=== PATIENT | male | born 1960 | race African-American/Black ===

== ENCOUNTER 2018-01-10 12:43 | Emergency (ER) | payer OTHER ==
[2018-01-10 12:50] VITALS: TEMP 98.3; BMI 25.5
--- NOTE | 2018-01-10 13:59 | PDOC ---
History of Present Illness - General Chief Complaint: Weakness Stated Complaint: WEAKNESS/HTN Time Seen by Provider: 01/10/18 13:05 - History of Present Illness Initial Comments: 01/10/18 14:27 The patient is a 57 year old male with a history of HTN, Heroin abuse who presents for evaluation of left ear drainage, sore throat, and generalized weakness. The patient reports a 3 day history of left ear drainage with associated sore throat and generalized weakness prompting the patient's presentation to the ED for evaluation. The patient notes that his last heroin use was 1 day ago. He otherwise denies fevers, chills, headache, difficulty swallowing, SOB, chest pain, nausea, vomiting, abdominal pain, or changes with urination or bowel movements. Past History - Past Medical History Allergies/Adverse Reactions: Allergies Allergy/AdvReac Type Severity Reaction Status Date / Time No Known Drug Allergies Allergy Verified 01/10/18 12:50 soy AdvReac Severe Vomiting Verified 01/10/18 12:50 Home Medications: Ambulatory Orders Amoxicillin - [Amoxicillin 500mg Capsule -] 100 mg PO BID #28 capsule 01/10/18 Ciprofloxacin HCl/Dexameth [Ciprodex Otic Suspension] 4 drop BID #1 bottle Anemia: No Asthma: Yes (NO TXMENT) Cancer: No Cardiac Disorders: No CVA: No COPD: No CHF: No Dementia: No Diabetes: No GI Disorders: No Disorders: No HTN: Yes (NO MEDS NOT COMPLIANT) Hypercholesterolemia: No Kidney Stones: No Seizures: No - Surgical History Abdominal Surgery: No Appendectomy: No Cardiac Surgery: No Cholecystectomy: No Lung Surgery: No Neurologic Surgery: No Orthopedic Surgery: No - Reproductive History Testicular Surgery: No - Suicide/Smoking/Psychosocial Hx Smoking Status: Yes Smoking History: Current every day smoker Have you smoked in the past 12 months: Yes Number of Cigarettes Smoked Daily: 10 Cigars Per Day: 0 Information on smoking cessation initiated: Yes 'Breaking Loose' booklet given: 01/10/18 Hx Alcohol Use: No Drug/Substance Use Hx: Yes (heroine) Substance Use Type: Heroin Hx Substance Use Treatment: Yes ([facility]) Review of Systems - Review of Systems Comments:: 01/10/18 14:31 Constitutional: No fevers, chills, fatigue, malaise HEENT: Left ear drainage, Sore Throat. No Rhinorrhea, nasal congestion, visual changes Cardiovascular: No chest pain, syncope, palpitations, lightheadedness Respiratory: No Cough, SOB, Hemoptysis, Gastrointestinal: No Abdominal pain, Nausea, Vomiting, Constipation, Diarrhea, Melena Genitourinary: No Dysuria, Frequency, Urgency, Hesitancy, Hematuria, Flank pain Musculoskeletal: No Myalgia, arthralgia Skin: No rashes, itching, bruising, pallor Neurologic: No Headache, Dizziness, Numbness, Weakness, or Tingling Psychiatric: No Hallucinations. No SI or HI *Physical Exam - Vital Signs Last Vital Signs Temp Pulse Resp BP Pulse Ox 98.3 F 65 18 144/95 98 01/10/18 12:47 01/10/18 12:47 01/10/18 12:47 01/10/18 12:47 01/10/18 12:47 - Physical Exam Comments: 01/10/18 14:31 General Appearance: Nourished. No Apparent Distress HEENT: EOMI, [place]. Pharyngeal Erythema. Erythematous Left TM with an Erythematous ear canal. No Tonsillar Exudate, Tonsillar Erythema Neck: No Cervical Lymphadenopathy Respiratory/Chest: Lungs Clear, Normal Breath Sounds. No Crackles, Rales, Rhonchi, Wheezing Cardiovascular: Regular Rhythm, Regular Rate. No Murmur, Gallops, Rubs Gastrointestinal/Abdominal: Normal Bowel Sounds, Soft. No Guarding, Rebound, Tenderness Musculoskeletal: No CVA Tenderness Extremity: Normal Capillary Refill Integumentary: Normal Color, Dry, Warm Neurologic: Fully Oriented, Alert, Normal Mood/Affect, Normal Response, ED Treatment Course - LABORATORY CBC & Chemistry Diagram: 01/10/18 14:34 01/10/18 14:34 Medical Decision Making - Medical Decision Making 01/10/18 14:32 The patient is a 57 year old male with a history of HTN, Heroin abuse who presents for evaluation of left ear drainage, sore throat, and generalized weakness. Differential includes but is not limited to: Otitis Externa, Otitis Media, Strep pharyngitis, Viral pharyngitis. Given the patient's physical exam , it appears the patient's symptoms are due to an Otitis Media. However we will obtain a cbc, cmp, and rapid strep to evaluate further. We will continue to monitor and reassess in the meantime. 01/10/18 16:58 CBC, cmp, rapid strep are unremarkable. We are comfortable discharging the patient home at this time with primary care provider follow up on amoxicillin and ciprodex ear drops. We discussed the results, plan, and return precautions with the patient who voiced understanding and is agreeable with the plan. *DC/Admit/Observation/Transfer Diagnosis at time of Disposition: Otitis media Qualifiers: Otitis media type: unspecified Chronicity: acute Qualified Code(s): H66.90 - Otitis media, unspecified, unspecified ear Otitis externa Qualifiers: Otitis externa type: unspecified type Chronicity: acute Laterality: unspecified laterality Qualified Code(s): H60.509 - Unspecified acute noninfective otitis externa, unspecified ear - Discharge Dispostion Disposition: HOME Condition at time of disposition: Good Admit: No - Prescriptions Prescriptions: Amoxicillin - [Amoxicillin 500mg Capsule -] 100 mg PO BID #28 capsule Ciprofloxacin HCl/Dexameth [Ciprodex Otic Suspension] 4 drop BID #1 bottle - Referrals Referrals: Chuy Waller MD [Primary Care Provider] - - Patient Instructions Printed Discharge Instructions: Middle Ear Infection, DI for Otitis Externa Additional Instructions: Please return to the ER if you experience concerning or worsening symptoms including worsening pain, difficulty swallowing, difficulty breathing or fevers. Your symptoms are likely due to an ear infection. We have sent a prescription for antibiotics to your pharmacy as well as ear drops that you should use as directed to help treat your symptoms. It is EXTREMELY important that you call to schedule a follow up appointment with a primary care provider to discuss your ER visit and further management of your symptoms. - Post Discharge Activity
--- NOTE | 2018-01-10 14:04 | PDOC ---
Attending Attestation - Resident Resident Name: MairaEdwinDouglas - ED Attending Attestation I have performed the following: I have examined & evaluated the patient, The case was reviewed & discussed with the resident, I agree w/resident's findings & plan, Exceptions are as noted - HPI HPI: 01/10/18 14:01 57y M hx of heroin abuse, htn, presents with complaint of L ear dranage, sore throat/generalized weakness x 3 days. No fever/chills, difficulty swallowing. on exam pt has an erythemadous TM, mild erythema in external ear canal no mastoid tenderness suspect otitis media w externa will tx with abx will ck basic labs but if neg, will have pt fu with PMD - Medical Decision Making 01/10/18 15:57 labs unremarkble no leukocytosis will treat pt for otitis externa and media with PO and topical abx will have pt fu with ENT for fu
[2018-01-10 14:51] LABS: EOS % 2.2 % (0-4.5); HEMATOCRIT 38.7 % (35.4-49); HEMOGLOBIN 12.8 GM/dL (11.7-16.9); LYMPH % 36.8 % (8-40); MCH 28.4 pg (25.7-33.7); MCHC 33.2 g/dl (32.0-35.9); MEAN CELL VOLUME 85.6 fl (80-96); MEAN PLT VOLUME 8.4 fl (7.5-11.1); MONO % 7.1 % (3.8-10.2); NEUT % 52.9 % (42.8-82.8); PLATELET COUNT 198 K/MM3 (134-434); RBC 4.52 M/mm3 (4.00-5.60); RDW 14.2 % (11.9-15.9); WHITE BLOOD COUNT 6.8 K/mm3 (4.0-10.0)
[2018-01-10 15:14] LABS: ALBUMIN 3.4 g/dl (3.4-5.0); ANION GAP 6 (8-16); BLOOD UREA NITROGEN 15 mg/dL (7-18); CALCIUM 8.9 mg/dL (8.5-10.1); CHLORIDE 104 mmol/L (98-107); CO2 30 mmol/L (21-32); CREATININE 1.1 mg/dL (0.7-1.3); GLUCOSE,RANDOM 119 mg/dL (74-106); SGOT/AST 16 U/L (15-37); SGPT/ALT 14 U/L (12-78); SODIUM 140 mmol/L (136-145)
[2018-01-10 15:16] LABS: ALK PHOS 102 U/L (45-117); BILIRUBIN,TOTAL 0.5 mg/dL (0.2-1.0); TOT PROT 6.8 g/dl (6.4-8.2)
[2018-01-10 16:14] VITALS: BP 145/88; PULSE 61
== END 2018-01-10 16:14 | disposition home or self-care (01) ==
LOC: JER 12:43
DX: H66.92 Otitis media, unspecified, left ear (principal); H60.502 Unspecified acute noninfective otitis externa, left ear; I10 Essential (primary) hypertension; F11.10 Opioid abuse, uncomplicated; F17.210 Nicotine dependence, cigarettes, uncomplicated; Z91.14 Patient's other noncompliance with medication regimen
CPT/HCPCS: 36415; 80053; 85025; 87070; 87430; 99282-25

== ENCOUNTER 2018-08-23 20:57 | Inpatient (IN) | payer OTHER ==
[2018-08-23 21:14] VITALS: BMI 24.5
[2018-08-23] MEDS ORDERED: MELATONIN 5 MG TABLETS PO PRN (22:00)
--- NOTE | 2018-08-23 22:13 | HP ---
"COWS - Scale Resting Pulse: 1= [place] 81-100 Sweatin=Flushed/Facial Moisture Restless Observation: 0= Sits Still Pupil Size: 1= Pupils >than Normal Bone or Joint Aches: 1= Mild Discomfort Runny Nose/ Eye Tearin= Runny Nose/Eyes GI Upset > 30mins: 0= None Tremor Observation: 2= Slight Tremor Visible Yawning Observation: 0= None Anxiety or Irritability: 1=Feels Anxious/Irritable Goose Flesh Skin: 0=Smooth Skin COWS Score: 10 CIWA Score Nausea/Vomitin-No Nausea/No Vomiting Muscle Tremors: 3 (Slight tremor visible) Anxiety: 3 Agitation: 3 Paroxysmal Sweats: 3 (Facial moisture w/o beads) Orientation: 0-Oriented Tacttile Disturbances: 0-None Auditory Disturbances: 0-None Visual Disturbances: 0-None Headache: 2-Mild CIWA-Ar Total Score: 14 - Admission Criteria [facility] Guidelines: Admission for Medically Managed Detox: Requires at least one of the followin. CIWA greater than 12 2. Seizures within the past 24 hours 3. Delirium tremens within the past 24 hours 4. Hallucinations within the past 24 hours 5. Acute intervention needed for co occurring medical disorder 6. Acute intervention needed for co occurring psychiatric disorder 7. Severe withdrawal that cannot be handled at a lower level of care (continued vomiting, continued diarrhea, abnormal vital signs) requiring intravenous medication and/or fluids 8. Patient presents the following: CIWA greater than 12 Admission Criteria Met: Admission criteria met Admission ROS [facility] - [facility] Chief Complaint: Here for alcohol and heroin withdrawal. Allergies/Adverse Reactions: Allergies Allergy/AdvReac Type Severity Reaction Status Date / Time No Known Drug Allergies Allergy Verified 08/23/18 21:18 soy AdvReac Severe Vomiting Verified 08/23/18 21:18 History of Present Illness: Here for detox. Nicotine use since age 13. Alcohol use since age 15. Heroin use since age 21. Cocaine/crack use since age 34. Denies seizures, blackouts, verdoses. States longest period of sobriety is 8 months. Hx asthma - denies recent exacerbation. States coughs a lot when detoxing. HTN - last took medication 2 months ago. Hx depression. Denies thoughts of harming self or others. Search Terms: Nash Gonsales, 1960 Search Date: 08/23/2018 10:07:43 PM The Drug Utilization Report below displays all of the controlled substance prescriptions, if any, that your patient has filled in the last twelve months. The information displayed on this report is compiled from pharmacy submissions to the Department, and accurately reflects the information as submitted by the pharmacies. This report was requested by: Melissa Mahoney | Reference #: [id number] Others' Prescriptions Patient Name: Nash Gonsales Date: 1960 Address: [address] [place] [address] Sex: Male Rx Written Rx Dispensed Drug Quantity Days Supply Prescriber Name 03/21/2018 03/21/2018 chlordiazepoxide 25 mg capsule 26 5 Michael James MD Exam Limitations: No Limitations - Ebola screening Have you traveled outside of the country in the last 21 days: No Have you had contact with anyone from an Ebola affected area: No Have you been sick,other than usual withdrawal symptoms: No Do you have a fever: No - Review of Systems Constitutional: Changes in sleep (Difficulty falling and staying asleep - no meds) EENT: reports: Blurred Vision, Dental Problems (Upper and lower dentures. Chews and swallows ok) Respiratory: reports: No Symptoms reported Cardiac: reports: No Symptoms Reported GI: reports: No Symptoms Reported : reports: No Symptoms Reported Musculoskeletal: reports: Joint Pain ((L) shoulder), Muscle Pain (Genralized) Integumentary: reports: No Symptoms Reported Neuro: reports: Headache, Tremors Endocrine: reports: No Symptoms Reported Hematology: reports: No Symptoms Reported Psychiatric: reports: Judgement Intact, Orientated x3, Agitated, Anxious, Depressed (Denies thoughts of harming self or others) Patient History - Patient Medical History Hx Anemia: No Hx Asthma: Yes (NO TXMENT) Hx Chronic Obstructive Pulmonary Disease (COPD): No Hx Cancer: No Hx Cardiac Disorders: No Hx Congestive Heart Failure: No Hx Hypertension: Yes (NO MEDS NOT COMPLIANT) Hx Hypercholesterolemia: No Hx Pacemaker: No HX Cerebrovascular Accident: No Hx Seizures: No Hx Dementia: No Hx Diabetes: No Hx Gastrointestinal Disorders: No Hx Genitourinary Disorders: No Hx Sexually Transmitted Disorders: No Hx Renal Disease (ESRD): No Hx Human Immunodeficiency Virus (HIV): No Hx Hepatitis C: No Hx Depression: Yes Hx Suicide Attempt: No Hx Bipolar Disorder: No Hx Schizophrenia: No - Patient Surgical History Past Surgical History: No Hx Neurologic Surgery: No Hx Cataract Extraction: No Hx Cardiac Surgery: No Hx Lung Surgery: No Hx Breast Surgery: No Hx Breast Biopsy: No Hx Abdominal Surgery: No Hx Appendectomy: No Hx Cholecystectomy: No Hx Genitourinary Surgery: No Hx Section: No Hx Orthopedic Surgery: No Anesthesia Reaction: No - PPD History Previous Implant?: Yes Documented Results: Negative w/proof Implanted On Prior [facility] Admission?: Yes Date: 10/12/15 Results: 0mm PPD to be Administered?: Yes - Smoking Cessation Smoking history: Current every day smoker Have you smoked in the past 12 months: Yes Aproximately how many cigarettes per day: 4 Cigars Per Day: 0 Hx Chewing Tobacco Use: No Initiated information on smoking cessation: Yes 'Breaking Loose' booklet given: 08/23/18 - Substance & Tx. History Hx Alcohol Use: Yes Hx Substance Use: Yes Substance Use Type: Alcohol, Cocaine, Heroin Hx Substance Use Treatment: Yes (detox, rehab, out-patient) - Substances Abused Alcohol Route: Oral Amount used: LIQUOR- 1 PINT, BEER- 2(40oz) Age of first use: 15 Date of Last Use: 08/23/18 Heroin Route: Inhalation Frequency: Daily Amount used: 8 bags Age of first use: 21 Date of Last Use: 08/23/18 Crack Route: Smoking Frequency: Daily Amount used: 5 bags Age of first use: 34 Date of Last Use: 08/23/18 Family Disease History - Family Disease History Family Disease History: Diabetes: Father (), Mother () Admission Physical Exam S - Vital Signs Vital Signs: Vital Signs - 24 hr 08/23/18 21:13 Temperature 98.4 F Pulse Rate 88 Respiratory 18 Rate Blood Pressure 150/78 - Physical General Appearance: Yes: Appropriately Dressed, Mild Distress, Tremorous, Irritable, Sweating, Anxious HEENTM: Yes: EOMI, Hearing grossly Normal, Normocephalic, [place] (Pupils = 4 mm), Rhinorrhea, Other (Perforated Nasal Septum) Respiratory: Yes: Lungs Clear, Normal Breath Sounds, No Respiratory Distress Neck: Yes: No masses,lesions,Nodules, Supple Breast: Yes: Breast Exam Deferred Cardiology: Yes: Regular Rhythm, Regular Rate, S1, S2, Murmur Abdominal: Yes: Non Tender, Flat, Soft, Increased Bowel Sounds Genitourinary: Yes: Within Normal Limits Back: Yes: Normal Inspection Musculoskeletal: Yes: full range of Motion, Gait Steady Extremities: Yes: Normal Capillary Refill, Normal Range of Motion, Tremors ( MIld tremors of hands when arms extended) Neurological: Yes: market research intern II-XII NML intact, Fully Oriented, Alert, Motor Strength 5/5, Normal Mood/Affect Integumentary: Yes: Normal Color, Dry (Decreased skin tirgor), Warm Lymphatic: Yes: Within Normal Limits - Diagnostic (1) Nontraumatic perforated nasal septum Current Visit: Yes Status: Acute (2) Alcohol dependence with uncomplicated withdrawal Current Visit: No Status: Acute (3) Cocaine dependence Current Visit: Yes Status: Chronic Qualifiers: Substance use status: uncomplicated Qualified Code(s): F14.20 - Cocaine dependence, uncomplicated (4) Opioid dependence with withdrawal Current Visit: Yes Status: Acute (5) HTN (hypertension) Current Visit: Yes Status: Chronic Qualifiers: Hypertension type: essential hypertension Qualified Code(s): I10 - Essential (primary) hypertension (6) Nicotine dependence Current Visit: Yes Status: Chronic Qualifiers: Nicotine product type: cigarettes Substance use status: uncomplicated Qualified Code(s): F17.210 - Nicotine dependence, cigarettes, uncomplicated (7) Murmur, cardiac Current Visit: Yes Status: Suspected (8) Dehydration Current Visit: Yes Status: Acute (9) Asthma Current Visit: No Status: Chronic Qualifiers: Asthma severity: unspecified severity Asthma persistence: intermittent Asthma complication type: uncomplicated Qualified Code(s): J45.20 - Mild intermittent asthma, uncomplicated Cleared for Admission [facility] - Detox or Rehab [facility] Level of Care: Medically Managed Detox Regimen/Protocol: Methadone/Librium [facility] Breath Alcohol Content Breath Alcohol Content: 0 Urine Drug Screen - Results Drug Screen Negative: No Urine Drug Screen Results: DEBBIE-Cocaine, OPI-Opiates, OXY-Oxycodone"
[2018-08-23] MEDS ORDERED: MAG HYDROX/AL HYDROX/SIMETH 30 ML UNIT-DOSE CUP PO PRN (22:44)
[2018-08-23] MEDS ORDERED: chlordiazePOXIDE HCL 25 MG CAPSULE PO PRN (22:44)
[2018-08-23] MEDS ORDERED: MAGNESIUM CITRATE 300 ML BOTTLE PO PRN (22:44)
[2018-08-23] MEDS ORDERED: NICOTINE POLACRILEX 2 MG GUM BC PRN (22:44)
[2018-08-23] MEDS ORDERED: METHADONE HCL 10 MG TABLET (FOR DETOX USE ONLY) PO ONE ×2 (22:44→23:00)
[2018-08-23] MEDS ORDERED: MAGNESIUM HYDROX 2400MG/30ML ORAL SUSPENSION 30 ML CUP PO PRN (22:44)
[2018-08-23] MEDS ORDERED: MENTHOL/PHENOL 1 EACH UD MM PRN (22:44)
[2018-08-23] MEDS ORDERED: ACETAMINOPHEN 325 MG TABLET (FP) PO PRN (22:44)
[2018-08-23] MEDS ORDERED: LOPERAMIDE HCL 2 MG CAPSULE PO PRN (22:44)
[2018-08-23] MEDS ORDERED: NAPROXEN 500 MG TABLET (FP) PO PRN (22:48)
[2018-08-23] MEDS ORDERED: ALBUTEROL SO4 0.083% IH SOL 2.5 MG/3 ML VIAL.NEB. NEB PRN (22:50)
[2018-08-23] MEDS ORDERED: AMMONIUM LACTATE 12% LOTION 225 GM BOTTLE TP PRN (23:03)
[2018-08-23] MEDS: chlordiazePOXIDE HCL 25 MG CAPSULE PO SCH (23:43)
[2018-08-24 02:34] LABS: URINE APPEARANCE CLEAR; URINE BILIRUBIN NEGATIVE (<2.0 mg/dL); URINE COLOR YELLOW; URINE GLUCOSE (UA) NEGATIVE (NEGATIVE); URINE KETONE NEGATIVE (NEGATIVE); URINE LEUK ESTERASE NEGATIVE (NEGATIVE); URINE NITRITE NEGATIVE (NEGATIVE); URINE PROTEIN NEGATIVE (NEGATIVE); URINE UROBILINOGEN NEGATIVE mg/dL (0.2-1.0)
[2018-08-24] MEDS: chlordiazePOXIDE HCL 25 MG CAPSULE PO SCH ×4 (05:45→22:41)
[2018-08-24] MEDS ORDERED: METHADONE HCL 10 MG TABLET (FOR DETOX USE ONLY) PO SCH (10:00)
[2018-08-24] MEDS: NICOTINE 7 MG/24 HOURS TOPICAL PATCH TD SCH (10:45)
[2018-08-24] MEDS: PRENATAL VITAMINS W/ FOLIC ACID TABLET (FP) PO SCH (10:45)
[2018-08-24 10:57] LABS: HEMATOCRIT 38.4 % (35.4-49); HEMOGLOBIN 12.3 GM/dL (11.7-16.9); MCH 27.9 pg (25.7-33.7); MCHC 32.1 g/dl (32.0-35.9); MEAN CELL VOLUME 86.8 fl (80-96); MEAN PLT VOLUME 9.3 fl (7.5-11.1); PLATELET COUNT 170 K/MM3 (134-434); RBC 4.43 M/mm3 (4.00-5.60); RDW 14.2 % (11.9-15.9)
[2018-08-24 11:04] LABS: ALBUMIN 3.2 g/dl (3.4-5.0); ALK PHOS 109 U/L (45-117); ANION GAP 5 MMOL/L (8-16); BILIRUBIN,TOTAL 0.5 mg/dL (0.2-1); BLOOD UREA NITROGEN 16 mg/dL (7-18); CALCIUM 8.3 mg/dL (8.5-10.1); CHLORIDE 102 mmol/L (98-107); CO2 30 mmol/L (21-32); CREATININE 0.8 mg/dL (0.55-1.3); GLUCOSE,RANDOM 100 mg/dL (74-106); POTASSIUM 4.3 mmol/L (3.5-5.1); SGOT/AST 17 U/L (15-37); SGPT/ALT 15 U/L (13-61); SODIUM 138 mmol/L (136-145); TOT PROT 5.9 g/dl (6.4-8.2)
--- NOTE | 2018-08-24 11:50 | PN ---
[facility] CIWA - CIWA Score Nausea/Vomitin-Mild Nausea/No Vomiting Muscle Tremors: 4-Moderate,w/Arms Extend Anxiety: 1-Mildly Anxious Agitation: 0-Normal Activity Paroxysmal Sweats: 1-Minimal Palms Moist Orientation: 0-Oriented Tacttile Disturbances: 0-None Auditory Disturbances: 0-None Visual Disturbances: 0-None Headache: 0-None Present CIWA-Ar Total Score: 7 [facility] COWS - Scale Resting Pulse: 1= [place] 81-100 Sweatin=Flushed/Facial Moisture Restless Observation: 0= Sits Still Pupil Size: 0= Normal to Room Light Bone or Joint Aches: 1= Mild Discomfort Runny Nose/ Eye Tearin= None GI Upset > 30mins: 2= Nausea/Diarrhea (No diarrhea) Tremor Observation of Outstretched Hands: 2= Slight Tremor Visible Yawning Observation: 0= None Anxiety or Irritability: 1=Feels Anxious/Irritable Goose Flesh Skin: 0=Smooth Skin COWS Score: 9 [facility] Progress Note (SOAP) Subjective: C/o nausea, Denies vomiting or diarrhea. States aches in back and legs. States has shakes. Objective: A&O x 3. Abd soft/non-tender. BS+ Lungs CTA; (+) tremors w/ arms extended. Facial moisture. Vital Signs 08/24/18 08/24/18 06:00 10:35 Temperature 97.7 F 97.9 F Pulse Rate 61 97 H Respiratory 18 18 Rate Blood Pressure 134/74 100/60 Laboratory Last Values WBC 4.0 K/mm3 (4.0-10.0) 08/24/18 07:50 RBC 4.43 M/mm3 (4.00-5.60) 08/24/18 07:50 Hgb 12.3 GM/dL (11.7-16.9) 08/24/18 07:50 Hct 38.4 % (35.4-49) 08/24/18 07:50 MCV 86.8 fl (80-96) 08/24/18 07:50 MCH 27.9 pg (25.7-33.7) 08/24/18 07:50 MCHC 32.1 g/dl (32.0-35.9) 08/24/18 07:50 RDW 14.2 % (11.9-15.9) 08/24/18 07:50 Plt Count 170 K/MM3 (134-434) 08/24/18 07:50 MPV 9.3 fl (7.5-11.1) D 08/24/18 07:50 Sodium 138 mmol/L (136-145) 08/24/18 07:50 Potassium 4.3 mmol/L (3.5-5.1) 08/24/18 07:50 Chloride 102 mmol/L (98-107) 08/24/18 07:50 Carbon Dioxide 30 mmol/L (21-32) 08/24/18 07:50 Anion Gap 5 MMOL/L (8-16) L 08/24/18 07:50 BUN 16 mg/dL (7-18) 08/24/18 07:50 Creatinine 0.8 mg/dL (0.55-1.3) 08/24/18 07:50 Creat Clearance w eGFR > 60 (>60) 08/24/18 07:50 Random Glucose 100 mg/dL (74-106) 08/24/18 07:50 Calcium 8.3 mg/dL (8.5-10.1) L 08/24/18 07:50 Total Bilirubin 0.5 mg/dL (0.2-1) 08/24/18 07:50 AST 17 U/L (15-37) 08/24/18 07:50 ALT 15 U/L (13-61) 08/24/18 07:50 Alkaline Phosphatase 109 U/L (45-117) 08/24/18 07:50 Total Protein 5.9 g/dl (6.4-8.2) L 08/24/18 07:50 Albumin 3.2 g/dl (3.4-5.0) L 08/24/18 07:50 Urine Color Yellow 08/23/18 23:32 Urine Appearance Clear 08/23/18 23:32 Urine pH 7.0 (5.0-8.0) D 08/23/18 23:32 Ur Specific [place] 1.017 (1.010-1.035) 08/23/18 23:32 Urine Protein Negative (NEGATIVE) 08/23/18 23:32 Urine Glucose (UA) Negative (NEGATIVE) 08/23/18 23:32 Urine Ketones Negative (NEGATIVE) 08/23/18 23:32 Urine Blood Negative (NEGATIVE) 08/23/18 23:32 Urine Nitrite Negative (NEGATIVE) 08/23/18 23:32 Urine Bilirubin Negative (<2.0 mg/dL) 08/23/18 23:32 Urine Urobilinogen Negative mg/dL (0.2-1.0) 08/23/18 23:32 Ur Leukocyte Esterase Negative (NEGATIVE) 08/23/18 23:32 HIV 1&2 Antibody Screen Negative 08/24/18 07:50 HIV P24 Antigen Negative 08/24/18 07:50 Labs reviewed. 08/24/18 11:54 Assessment: Withdrawal symptoms. Plan: Continue detox. Encourage water intake.
[2018-08-24] MEDS: THIAMINE HCL 100 MG TABLET (FP) PO SCH (22:42)
[2018-08-25] MEDS: chlordiazePOXIDE HCL 25 MG CAPSULE PO SCH ×3 (05:19→17:45)
[2018-08-25] MEDS: PRENATAL VITAMINS W/ FOLIC ACID TABLET (FP) PO SCH (10:26)
[2018-08-25] MEDS: METHADONE HCL 5 MG TABLET (FOR DETOX USE ONLY) PO SCH (10:27)
[2018-08-25] MEDS: NICOTINE 7 MG/24 HOURS TOPICAL PATCH TD SCH (10:30)
--- NOTE | 2018-08-25 13:37 | PN ---
[facility] CIWA - CIWA Score Nausea/Vomitin-No Nausea/No Vomiting Muscle Tremors: 2 Anxiety: 1-Mildly Anxious Agitation: 1-Slight > Activity Paroxysmal Sweats: 1-Minimal Palms Moist Orientation: 0-Oriented Tacttile Disturbances: 0-None Auditory Disturbances: 0-None Visual Disturbances: 0-None Headache: 1-Very Mild CIWA-Ar Total Score: 6 [facility] COWS - Scale Resting Pulse: 0= [place] 80 or Below Sweatin= No chills or Flushing Restless Observation: 0= Sits Still Pupil Size: 0= Normal to Room Light Bone or Joint Aches: 1= Mild Discomfort Runny Nose/ Eye Tearin= Nasal Congestion GI Upset > 30mins: 1= Stomach Cramp Tremor Observation of Outstretched Hands: 1= Tremor [place], Not Seen Yawning Observation: 2= >3x During Session Anxiety or Irritability: 1=Feels Anxious/Irritable Goose Flesh Skin: 0=Smooth Skin COWS Score: 7 [facility] Progress Note (SOAP) Subjective: sweat tremor restlessness muscle aches Objective: 08/25/18 13:45 Vital Signs Temperature 97.7 F 08/25/18 10:00 Pulse Rate 74 08/25/18 10:00 Respiratory Rate 18 08/25/18 10:00 Blood Pressure 140/81 08/25/18 10:00 O2 Sat by Pulse Oximetry (%) Laboratory Last Values WBC 4.0 K/mm3 (4.0-10.0) 08/24/18 07:50 RBC 4.43 M/mm3 (4.00-5.60) 08/24/18 07:50 Hgb 12.3 GM/dL (11.7-16.9) 08/24/18 07:50 Hct 38.4 % (35.4-49) 08/24/18 07:50 MCV 86.8 fl (80-96) 08/24/18 07:50 MCH 27.9 pg (25.7-33.7) 08/24/18 07:50 MCHC 32.1 g/dl (32.0-35.9) 08/24/18 07:50 RDW 14.2 % (11.9-15.9) 08/24/18 07:50 Plt Count 170 K/MM3 (134-434) 08/24/18 07:50 MPV 9.3 fl (7.5-11.1) D 08/24/18 07:50 Sodium 138 mmol/L (136-145) 08/24/18 07:50 Potassium 4.3 mmol/L (3.5-5.1) 08/24/18 07:50 Chloride 102 mmol/L (98-107) 08/24/18 07:50 Carbon Dioxide 30 mmol/L (21-32) 08/24/18 07:50 Anion Gap 5 MMOL/L (8-16) L 08/24/18 07:50 BUN 16 mg/dL (7-18) 08/24/18 07:50 Creatinine 0.8 mg/dL (0.55-1.3) 08/24/18 07:50 Creat Clearance w eGFR > 60 (>60) 08/24/18 07:50 Random Glucose 100 mg/dL (74-106) 08/24/18 07:50 Calcium 8.3 mg/dL (8.5-10.1) L 08/24/18 07:50 Total Bilirubin 0.5 mg/dL (0.2-1) 08/24/18 07:50 AST 17 U/L (15-37) 08/24/18 07:50 ALT 15 U/L (13-61) 08/24/18 07:50 Alkaline Phosphatase 109 U/L (45-117) 08/24/18 07:50 Total Protein 5.9 g/dl (6.4-8.2) L 08/24/18 07:50 Albumin 3.2 g/dl (3.4-5.0) L 08/24/18 07:50 Urine Color Yellow 08/23/18 23:32 Urine Appearance Clear 08/23/18 23:32 Urine pH 7.0 (5.0-8.0) D 08/23/18 23:32 Ur Specific [place] 1.017 (1.010-1.035) 08/23/18 23:32 Urine Protein Negative (NEGATIVE) 08/23/18 23:32 Urine Glucose (UA) Negative (NEGATIVE) 08/23/18 23:32 Urine Ketones Negative (NEGATIVE) 08/23/18 23:32 Urine Blood Negative (NEGATIVE) 08/23/18 23:32 Urine Nitrite Negative (NEGATIVE) 08/23/18 23:32 Urine Bilirubin Negative (<2.0 mg/dL) 08/23/18 23:32 Urine Urobilinogen Negative mg/dL (0.2-1.0) 08/23/18 23:32 Ur Leukocyte Esterase Negative (NEGATIVE) 08/23/18 23:32 RPR Titer Nonreactive (NONREACTIVE) 08/24/18 07:50 HIV 1&2 Antibody Screen Negative 08/24/18 07:50 HIV P24 Antigen Negative 08/24/18 07:50 lab noted Assessment: 08/25/18 13:46 withdrawal sx Plan: continue detox
[2018-08-25] MEDS: chlordiazePOXIDE 5 MG CAPSULE PO SCH (22:49)
[2018-08-25] MEDS: THIAMINE HCL 100 MG TABLET (FP) PO SCH (22:50)
[2018-08-26] MEDS: chlordiazePOXIDE 5 MG CAPSULE PO SCH ×3 (06:16→17:38)
[2018-08-26] MEDS: PRENATAL VITAMINS W/ FOLIC ACID TABLET (FP) PO SCH (10:30)
[2018-08-26] MEDS: NICOTINE 7 MG/24 HOURS TOPICAL PATCH TD SCH (10:30)
[2018-08-26] MEDS: METHADONE HCL 5 MG TABLET (FOR DETOX USE ONLY) PO SCH (10:31)
--- NOTE | 2018-08-26 11:27 | EKG ---
Test Reason : Blood Pressure : / mmHG Vent. Rate : 066 BPM Atrial Rate : 066 BPM P-R Int : 190 ms QRS Dur : 084 ms QT Int : 412 ms P-R-T Axes : 075 042 033 degrees QTc Int : 431 ms NORMAL SINUS RHYTHM NONSPECIFIC T WAVE ABNORMALITY ABNORMAL ECG WHEN COMPARED WITH ECG OF 18-SEP-2016 12:25, T WAVE VARIATION Confirmed by SAMI RESENDEZ MD ([id number]) on 08/26/2018 11:27:24 AM Referred By: Confirmed By:SAMI RESENDEZ MD
--- NOTE | 2018-08-26 11:45 | PN ---
[facility] Progress Note (SOAP) Subjective: body aches tremor sweat trouble sleep at night restlessness gi distress Objective: 08/26/18 11:44 Vital Signs Temperature 97.7 F 08/26/18 09:05 Pulse Rate 66 08/26/18 09:05 Respiratory Rate 18 12 09:05 Blood Pressure 130/82 08/26/18 09:05 O2 Sat by Pulse Oximetry (%) Laboratory Last Values WBC 4.0 K/mm3 (4.0-10.0) 08/24/18 07:50 RBC 4.43 M/mm3 (4.00-5.60) 08/24/18 07:50 Hgb 12.3 GM/dL (11.7-16.9) 08/24/18 07:50 Hct 38.4 % (35.4-49) 08/24/18 07:50 MCV 86.8 fl (80-96) 08/24/18 07:50 MCH 27.9 pg (25.7-33.7) 08/24/18 07:50 MCHC 32.1 g/dl (32.0-35.9) 08/24/18 07:50 RDW 14.2 % (11.9-15.9) 08/24/18 07:50 Plt Count 170 K/MM3 (134-434) 08/24/18 07:50 MPV 9.3 fl (7.5-11.1) D 08/24/18 07:50 Sodium 138 mmol/L (136-145) 08/24/18 07:50 Potassium 4.3 mmol/L (3.5-5.1) 08/24/18 07:50 Chloride 102 mmol/L (98-107) 08/24/18 07:50 Carbon Dioxide 30 mmol/L (21-32) 08/24/18 07:50 Anion Gap 5 MMOL/L (8-16) L 08/24/18 07:50 BUN 16 mg/dL (7-18) 08/24/18 07:50 Creatinine 0.8 mg/dL (0.55-1.3) 08/24/18 07:50 Creat Clearance w eGFR > 60 (>60) 08/24/18 07:50 Random Glucose 100 mg/dL (74-106) 08/24/18 07:50 Calcium 8.3 mg/dL (8.5-10.1) L 08/24/18 07:50 Total Bilirubin 0.5 mg/dL (0.2-1) 08/24/18 07:50 AST 17 U/L (15-37) 08/24/18 07:50 ALT 15 U/L (13-61) 08/24/18 07:50 Alkaline Phosphatase 109 U/L (45-117) 08/24/18 07:50 Total Protein 5.9 g/dl (6.4-8.2) L 08/24/18 07:50 Albumin 3.2 g/dl (3.4-5.0) L 08/24/18 07:50 Urine Color Yellow 08/23/18 23:32 Urine Appearance Clear 08/23/18 23:32 Urine pH 7.0 (5.0-8.0) D 08/23/18 23:32 Ur Specific [place] 1.017 (1.010-1.035) 08/23/18 23:32 Urine Protein Negative (NEGATIVE) 08/23/18 23:32 Urine Glucose (UA) Negative (NEGATIVE) 08/23/18 23:32 Urine Ketones Negative (NEGATIVE) 08/23/18 23:32 Urine Blood Negative (NEGATIVE) 08/23/18 23:32 Urine Nitrite Negative (NEGATIVE) 08/23/18 23:32 Urine Bilirubin Negative (<2.0 mg/dL) 08/23/18 23:32 Urine Urobilinogen Negative mg/dL (0.2-1.0) 08/23/18 23:32 Ur Leukocyte Esterase Negative (NEGATIVE) 08/23/18 23:32 RPR Titer Nonreactive (NONREACTIVE) 08/24/18 07:50 HIV 1&2 Antibody Screen Negative 08/24/18 07:50 HIV P24 Antigen Negative 08/24/18 07:50 lab noted Assessment: 08/26/18 11:45 withdrawal sx Plan: continue detox
[2018-08-26] MEDS: THIAMINE HCL 100 MG TABLET (FP) PO SCH (23:19)
[2018-08-26] MEDS: chlordiazePOXIDE HCL 10 MG CAPSULE PO SCH (23:19)
[2018-08-27] MEDS: chlordiazePOXIDE HCL 10 MG CAPSULE PO SCH (05:19)
[2018-08-27 09:10] VITALS: BP 142/73; PULSE 80; TEMP 98.2
[2018-08-27] MEDS ORDERED: METHADONE HCL 10 MG TABLET (FOR DETOX USE ONLY) PO SCH (10:00)
--- NOTE | 2018-08-27 10:30 | DS ---
[facility] Detox Discharge Summary Admission Date: 08/23/18 Discharge Date: 08/27/18 - History Present History: Alcohol Dependence, Opioid Dependence Additional Comments: 57 years old male admitted on 08/23/18 for alcohol and opiate withdrawal sx completed detox regimen tolerated well alert oriented x 3 no acute distress aftercare [facility] appointment was made on 09/05/18 - Physical Exam Results Vital Signs: Vital Signs Temperature 98.2 F 08/27/18 09:09 Pulse Rate 80 08/27/18 09:09 Respiratory Rate 18 08/27/18 09:09 Blood Pressure 142/73 08/27/18 09:09 O2 Sat by Pulse Oximetry (%) Pertinent Admission Physical Exam Findings: alcohol and opiate withdrawal sx Vital Signs Temperature 98.2 F 08/27/18 09:09 Pulse Rate 80 08/27/18 09:09 Respiratory Rate 18 08/27/18 09:09 Blood Pressure 142/73 08/27/18 09:09 O2 Sat by Pulse Oximetry (%) Laboratory Last Values WBC 4.0 K/mm3 (4.0-10.0) 08/24/18 07:50 RBC 4.43 M/mm3 (4.00-5.60) 08/24/18 07:50 Hgb 12.3 GM/dL (11.7-16.9) 08/24/18 07:50 Hct 38.4 % (35.4-49) 08/24/18 07:50 MCV 86.8 fl (80-96) 08/24/18 07:50 MCH 27.9 pg (25.7-33.7) 08/24/18 07:50 MCHC 32.1 g/dl (32.0-35.9) 08/24/18 07:50 RDW 14.2 % (11.9-15.9) 08/24/18 07:50 Plt Count 170 K/MM3 (134-434) 08/24/18 07:50 MPV 9.3 fl (7.5-11.1) D 08/24/18 07:50 Sodium 138 mmol/L (136-145) 08/24/18 07:50 Potassium 4.3 mmol/L (3.5-5.1) 08/24/18 07:50 Chloride 102 mmol/L (98-107) 08/24/18 07:50 Carbon Dioxide 30 mmol/L (21-32) 08/24/18 07:50 Anion Gap 5 MMOL/L (8-16) L 08/24/18 07:50 BUN 16 mg/dL (7-18) 08/24/18 07:50 Creatinine 0.8 mg/dL (0.55-1.3) 08/24/18 07:50 Creat Clearance w eGFR > 60 (>60) 08/24/18 07:50 Random Glucose 100 mg/dL (74-106) 08/24/18 07:50 Calcium 8.3 mg/dL (8.5-10.1) L 08/24/18 07:50 Total Bilirubin 0.5 mg/dL (0.2-1) 08/24/18 07:50 AST 17 U/L (15-37) 08/24/18 07:50 ALT 15 U/L (13-61) 08/24/18 07:50 Alkaline Phosphatase 109 U/L (45-117) 08/24/18 07:50 Total Protein 5.9 g/dl (6.4-8.2) L 08/24/18 07:50 Albumin 3.2 g/dl (3.4-5.0) L 08/24/18 07:50 Urine Color Yellow 08/23/18 23:32 Urine Appearance Clear 08/23/18 23:32 Urine pH 7.0 (5.0-8.0) D 08/23/18 23:32 Ur Specific [place] 1.017 (1.010-1.035) 08/23/18 23:32 Urine Protein Negative (NEGATIVE) 08/23/18 23:32 Urine Glucose (UA) Negative (NEGATIVE) 08/23/18 23:32 Urine Ketones Negative (NEGATIVE) 08/23/18 23:32 Urine Blood Negative (NEGATIVE) 08/23/18 23:32 Urine Nitrite Negative (NEGATIVE) 08/23/18 23:32 Urine Bilirubin Negative (<2.0 mg/dL) 08/23/18 23:32 Urine Urobilinogen Negative mg/dL (0.2-1.0) 08/23/18 23:32 Ur Leukocyte Esterase Negative (NEGATIVE) 08/23/18 23:32 RPR Titer Nonreactive (NONREACTIVE) 08/24/18 07:50 HIV 1&2 Antibody Screen Negative 08/24/18 07:50 HIV P24 Antigen Negative 08/24/18 07:50 lab noted - Treatment Hospital Course: Detox Protocol Followed, Detoxed Safely, Responded well, Discharged Condition Good, Rehab Referral Accepted Patient has Accepted a Rehab Referral to: [facility] - Medication Discharge Medications: Ambulatory Orders NK [No Known Home Medication] 08/23/18 - Diagnosis (1) Alcohol dependence with uncomplicated withdrawal Current Visit: Yes Status: Acute (2) Opioid dependence with withdrawal Current Visit: Yes Status: Acute (3) HTN (hypertension) Current Visit: Yes Status: Chronic Qualifiers: Hypertension type: essential hypertension Qualified Code(s): I10 - Essential (primary) hypertension (4) Nicotine dependence Current Visit: Yes Status: Acute Qualifiers: Nicotine product type: cigarettes Substance use status: in withdrawal Qualified Code(s): F17.213 - Nicotine dependence, cigarettes, with withdrawal (5) Asthma Current Visit: Yes Status: Chronic Qualifiers: Asthma severity: unspecified severity Asthma persistence: intermittent Asthma complication type: uncomplicated Qualified Code(s): J45.20 - Mild intermittent asthma, uncomplicated (6) Substance induced mood disorder Current Visit: Yes Status: Suspected - AMA Did Patient Leave Against Medical Advice: No
[2018-08-28] MEDS ORDERED: METHADONE HCL 5 MG TABLET (FOR DETOX USE ONLY) PO SCH (06:00)
== END 2018-08-27 09:47 | disposition home or self-care (01) | DRG 773 ==
LOC: YASAS 20:57 → Y6N 23:02
PROC: HZ2ZZZZ Detoxification Services for Substance Abuse Treatment (ICD-10-PCS; principal; 2018-08-23)
DX: F11.23 Opioid dependence with withdrawal (principal); F10.230 Alcohol dependence with withdrawal, uncomplicated; F17.213 Nicotine dependence, cigarettes, with withdrawal; F19.24 Other psychoactive substance dependence with psychoactive substance-induced mood disorder; F32.9 Major depressive disorder, single episode, unspecified; E86.0 Dehydration; I10 Essential (primary) hypertension; J45.20 Mild intermittent asthma, uncomplicated; J34.89 Other specified disorders of nose and nasal sinuses; R01.1 Cardiac murmur, unspecified
CPT/HCPCS: 36415; 80053; 81003; 85027; 86593; 87389; 93005; 93010

== ENCOUNTER 2018-09-14 12:57 | Inpatient (IN) | payer OTHER ==
[2018-09-14] MEDS ORDERED: ALBUTEROL SO4 2.5/IPRATROPIUM 0.5 INH SOL 3 ML VIAL.NEB. NEB ONE ×2 (13:23→13:24)
--- NOTE | 2018-09-14 13:23 | PDOC ---
History of Present Illness - General Chief Complaint: Respiratory Stated Complaint: CHEST PAIN/SOB Time Seen by Provider: 09/14/18 13:18 - History of Present Illness Initial Comments: 09/14/18 13:42 The patient is a 57 year old male with a history of HTN, Asthma, Alcohol abuse, Heroin Abuse who presents for evaluation of cough, body aches, and shortness of breath. The patient reports a 2 day history of worsening shortness of breath with an associated non-productive cough, body aches, and subjective fevers prompting his presentation to the ED for further evaluation. He notes that he did snort heroin earlier this morning. He reports that he is a daily smoker as well, but has not been able to smoke due to not feeling well. He otherwise denies chills, chest pain, nausea, vomiting, abdominal pain, or changes with urination or bowel movements. Past History - Past Medical History Allergies/Adverse Reactions: Allergies Allergy/AdvReac Type Severity Reaction Status Date / Time No Known Drug Allergies Allergy Verified 09/14/18 13:04 soy AdvReac Severe Vomiting Verified 09/14/18 13:04 Home Medications: Ambulatory Orders NK [No Known Home Medication] 08/23/18 Anemia: No Asthma: Yes (NO TXMENT) Cancer: No Cardiac Disorders: No CVA: No COPD: No CHF: No Dementia: No Diabetes: No GI Disorders: No Disorders: No HTN: Yes (NO MEDS NOT COMPLIANT) Hypercholesterolemia: No Kidney Stones: No Seizures: No - Surgical History Abdominal Surgery: No Appendectomy: No Cardiac Surgery: No Cholecystectomy: No Lung Surgery: No Neurologic Surgery: No Orthopedic Surgery: No - Reproductive History Testicular Surgery: No - Suicide/Smoking/Psychosocial Hx Smoking Status: Yes Smoking History: Current every day smoker Have you smoked in the past 12 months: Yes Number of Cigarettes Smoked Daily: 3 Cigars Per Day: 0 Information on smoking cessation initiated: No 'Breaking Loose' booklet given: 08/23/18 Hx Alcohol Use: Yes Drug/Substance Use Hx: Yes Substance Use Type: Alcohol, Cocaine, Heroin Hx Substance Use Treatment: Yes (detox, rehab, out-patient) Review of Systems - Review of Systems Comments:: 09/14/18 13:44 Constitutional: Subjective fevers, Fatigue, Body Aches. No chills, HEENT: No Rhinorrhea, nasal congestion, visual changes Cardiovascular: No chest pain, syncope, palpitations, lightheadedness Respiratory: Cough, SOB. No Hemoptysis, Gastrointestinal: No Abdominal pain, Nausea, Vomiting, Constipation, Diarrhea, Melena Genitourinary: No Dysuria, Frequency, Urgency, Hesitancy, Hematuria, Flank pain Musculoskeletal: No Myalgia, arthralgia Skin: No rashes, itching, bruising, pallor Neurologic: No Headache, Dizziness, Numbness, Weakness, or Tingling Psychiatric: No Hallucinations. No SI or HI *Physical Exam - Vital Signs Last Vital Signs Temp Pulse Resp BP Pulse Ox 98.6 F 72 18 159/91 90 L 09/14/18 13:01 09/14/18 13:01 09/14/18 13:01 09/14/18 13:01 09/14/18 13:01 - Physical Exam Comments: 09/14/18 13:45 General Appearance: Nourished. No Apparent Distress HEENT: No Pharyngeal Erythema, Tonsillar Exudate, Tonsillar Erythema Neck: No Cervical Lymphadenopathy Respiratory/Chest: Diffuse expiratory wheezing noted bilaterally. No Crackles , Rales, Rhonchi Cardiovascular: Regular Rhythm, Regular Rate. No Murmur, Gallops, Rubs Gastrointestinal/Abdominal: Normal Bowel Sounds, Soft. No Guarding, Rebound, Tenderness Musculoskeletal: No CVA Tenderness Extremity: Normal Capillary Refill Integumentary: Normal Color, Dry, Warm Neurologic: Fully Oriented, Alert, Normal Mood/Affect, Normal Response, Moderate Sedation - Procedure Monitoring Vital Signs: Procedure Monitoring Vital Signs Temperature 98.6 F 09/14/18 13:01 Pulse Rate 72 09/14/18 13:01 Respiratory Rate 18 09/14/18 13:01 Blood Pressure 159/91 09/14/18 13:01 O2 Sat by Pulse Oximetry (%) 90 L 09/14/18 13:01 Heart Score/ECG Review #1 ECG reviewed & interpreted by me at: 13:46 General ECG Interpretation: Sinus Rhythm, Normal Rate, Normal Intervals, No acute ischemic changes ED Treatment Course - LABORATORY CBC & Chemistry Diagram: 09/14/18 13:28 09/14/18 13:28 Medical Decision Making - Medical Decision Making 09/14/18 13:46 The patient is a 57 year old male with a history of HTN, Asthma, Alcohol abuse, Heroin Abuse who presents for evaluation of cough, body aches, and shortness of breath. Differential includes but is not limited to: Asthma exacerbation, COPD exacerbation, Pneumonia, Influenza, Infectious, Metabolic Derangement. It is likely the patient's symptoms are due to a COPD or asthma exacerbation. The patient was noted to be saturating 88% on room air on exam here in the ED. Given the patient's history and physical exam, we will obtain a cbc, cmp, troponin, bnp, ekg, chest plain film to evaluate further. We will treat with duonebs solumedrol. We will continue to monitor and reassess while here in the ED. 09/14/18 15:38 CBC, cmp, troponin, bnp are unremarkable. Chest plain film does not demonstrate any acute process as read by our radiologist. The patient continues to have expiratory wheezing on exam although somewhat improved despite medications. We believe he requires admission given his persistent symptoms and initial hypoxia. The patient is currently saturating 98% on 2L NC. We discussed the case with the hospitalist team who accepted the patient for admission. *DC/Admit/Observation/Transfer Diagnosis at time of Disposition: COPD exacerbation - Discharge Dispostion Condition at time of disposition: Stable Decision to Admit order: Yes - Referrals - Patient Instructions - Post Discharge Activity
[2018-09-14 13:48] LABS: HEMATOCRIT 39.1 % (35.4-49); HEMOGLOBIN 13.5 GM/dL (11.7-16.9); MCH 29.5 pg (25.7-33.7); MCHC 34.6 g/dl (32.0-35.9); MEAN CELL VOLUME 85.2 fl (80-96); PLATELET COUNT 152 K/MM3 (134-434); RBC 4.58 M/mm3 (4.00-5.60); WHITE BLOOD COUNT 4.4 K/mm3 (4.0-10.0)
[2018-09-14] MEDS ORDERED: methylPREDNISolone NA SUCC 125 MG/2 ML VIAL IVPUSH ONE (13:48)
[2018-09-14 13:49] LABS: BASO % 0.6 % (0-2.0); EOS % 0.2 % (0-4.5); LYMPH % 18.8 % (8-40); MEAN PLT VOLUME 9.3 fl (7.5-11.1); MONO % 12.6 % (3.8-10.2); NEUT % 67.8 % (42.8-82.8)
[2018-09-14] MEDS ORDERED: methylPREDNISolone NA SUCC 125 MG/2 ML VIAL ONE (13:55)
--- NOTE | 2018-09-14 14:27 | PDOC ---
Attending Attestation - Resident Resident Name: Douglas Rao - ED Attending Attestation I have performed the following: I have examined & evaluated the patient, The case was reviewed & discussed with the resident, I agree w/resident's findings & plan, Exceptions are as noted - HPI HPI: 09/14/18 14:27 The patient is a 57 year old male, with a significant past medical history of HTN, Asthma, Alcohol abuse, and Heroin Abuse, who presents to the emergency department with, 2 days of shortness of breath, cough, subjective fevers, and body aches. Patient endorses snorting heroin prior to his arrival but, denies taking anything for his symptoms. States symptoms feel like his asthma. He denies any recent fevers, chills, headache or dizziness. He denies any recent nausea, vomit, diarrhea or constipation. He denies any recent chest pain or shortness of breath. He denies any recent dysuria, frequency, urgency or hematuria. Allergies: Soy. Past surgical history: None reported. Social History: Smoker. Heroine usage. - Physicial Exam PE: 09/14/18 14:27 agree with resident exam - Medical Decision Making 09/14/18 14:00 57yo M hx asthma, PSA presents to the ED with 2 days of fevers, wheezing, SOB. Vitals with O2 sat 90%. Exam with diffuse wheezing consistent with asthma exacerbation. Unlikely PE as no RF, no CP, EKG non ischemic. In light of SOB, hx HTN, will send trop/BNP. Plan for labs, XR, nebs, steroids, reassess. 09/14/18 15:42 Pt continues to be SOB, but feels mildly better Wheezing less, but still mild exp wheezing on R Labs wnl, still has 2L O2 requirement Will obs for asthma/COPD exacerbation Pt accepted for admission, signed out by Dr. Rao Case discussed in detail with admitting physician including history, physical exam and ancillary studies. Admitting physician has assumed care for the patient, will follow all pending diagnostics and will complete the evaluation and treatment. Heart Score/ECG Review #1 09/14/18 14:47 Twelve-lead EKG was performed and reviewed by me. Normal sinus rhythm, rate 70 to. Normal axis and intervals. No ST elevations. High voltage consistent with LVH.
[2018-09-14 14:43] LABS: ALBUMIN 3.7 g/dl (3.4-5.0); ALK PHOS 111 U/L (45-117); ANION GAP 6 MMOL/L (8-16); BILIRUBIN,TOTAL 0.6 mg/dL (0.2-1); BLOOD UREA NITROGEN 12 mg/dL (7-18); CALCIUM 8.9 mg/dL (8.5-10.1); CHLORIDE 100 mmol/L (98-107); CO2 30 mmol/L (21-32); CREATININE 1.2 mg/dL (0.55-1.3); GLUCOSE,RANDOM 104 mg/dL (74-106); POTASSIUM 3.8 mmol/L (3.5-5.1); SGOT/AST 33 U/L (15-37); SGPT/ALT 22 U/L (13-61); SODIUM 136 mmol/L (136-145); TOT PROT 7.2 g/dl (6.4-8.2)
--- NOTE | 2018-09-14 15:39 | EKG ---
Test Reason : Blood Pressure : / mmHG Vent. Rate : 072 BPM Atrial Rate : 072 BPM P-R Int : 174 ms QRS Dur : 088 ms QT Int : 414 ms P-R-T Axes : 081 039 037 degrees QTc Int : 453 ms NORMAL SINUS RHYTHM MINIMAL VOLTAGE CRITERIA FOR LVH, MAY BE NORMAL VARIANT BORDERLINE ECG WHEN COMPARED WITH ECG OF 23-AUG-2018 23:19, NO SIGNIFICANT CHANGE WAS FOUND Confirmed by JESSICA FARFAN MD ([id number]) on 09/14/2018 3:38:47 PM Referred By: Confirmed By:JESSICA FARFAN MD
[2018-09-14 17:51] VITALS: BMI 24.1
[2018-09-14] MEDS ORDERED: ALBUTEROL SO4 2.5/IPRATROPIUM 0.5 INH SOL 3 ML VIAL.NEB. NEB PRN (18:17)
[2018-09-14] MEDS ORDERED: AZITHROMYCIN IVPB 500 MG in DEXTROSE 5%-WATER - 250 ML IVPB SCH (18:30)
--- NOTE | 2018-09-14 18:47 | HP ---
CHIEF COMPLAINT: Shortness of Breath PCP: None HISTORY OF PRESENT ILLNESS: 57 year old Male with history of HTN, Asthma/COPD, Polysubstance Abuse (Heroin, Cocaine, Alcohol), presents with a 2 day history of SOB, cough productive of brown sputum, body aches, chills with SpO2 of 88% on Room Air as per ED physician. No fever. No hemoptysis. No chest pain/palpitations. He admits to daily alcohol use and heroin use (which he snorts), last time this am. He denies history of alcohol withdrawal. He does not follow with a PCP and takes no home medications. ER course was notable for: (1)Duoneb admin, IV Methylpred, supplemental O2 (2) SpO2 88% on Room Air PAST MEDICAL HISTORY: HTN - not compliant with meds Asthma/COPD Polysubstance Abuse (Heroin, Cocaine, Alcohol) Social History: Lives alone. Smokes 4cpd, Heroin use, last time this am. Cocaine use, last time 2 days ago. Family History: Reviewed and non-contributory Allergies No Known Drug Allergies Allergy (Verified 09/14/18 13:04) soy Adverse Reaction (Severe, Verified 09/14/18 13:04) Vomiting HOME MEDICATIONS: Home Medications Medication Instructions Recorded NK [No Known Home Medication] 08/23/18 REVIEW OF SYSTEMS CONSTITUTIONAL: Absent: fever,diaphoresis. Complains of generalized weakness, malaise, chills. HEENT: Absent: rhinorrhea, nasal congestion, throat pain, throat swelling, difficulty swallowing, mouth swelling, ear pain, eye pain, visual changes CARDIOVASCULAR: Absent: chest pain, syncope, palpitations, irregular heart rate, lightheadedness , peripheral edema RESPIRATORY: Admits to cough productive of brown sputum and shortness of breath. No stridor, hemoptysis GASTROINTESTINAL: Absent: abdominal pain, abdominal distension, nausea, vomiting, diarrhea, constipation, melena, hematochezia GENITOURINARY: Absent: dysuria, frequency, urgency, hesitancy, hematuria MUSCULOSKELETAL: Absent: myalgia, arthralgia, joint swelling, back pain, neck pain SKIN: Absent: rash, itching, pallor ENDOCRINE: Absent: polyuria/polydipsia NEUROLOGIC: Absent: headache, focal weakness or paresthesias, dizziness, unsteady gait, seizure, mental status changes, bladder or bowel incontinence PSYCHIATRIC: Absent: anxiety, depression, suicidal or homicidal ideation, hallucinations. PHYSICAL EXAMINATION Vital Signs - 24 hr 09/14/18 09/14/18 09/14/18 13:01 14:03 15:18 Temperature 98.6 F 98.7 F Pulse Rate 72 Pulse Rate [ 85 Left Radial] Respiratory 18 18 Rate Blood Pressure 159/91 Blood Pressure 131/73 [Left Arm] O2 Sat by Pulse 90 L 98 Oximetry (%) 09/14/18 09/14/18 17:40 18:00 Temperature 99.0 F Pulse Rate 86 Pulse Rate [ Left Radial] Respiratory 19 Rate Blood Pressure 128/70 Blood Pressure [Left Arm] O2 Sat by Pulse 96 Oximetry (%) GENERAL: Drowsy but rousable to Orientation x3. HEAD: Normal with no signs of trauma. EYES: Pupils small but equal, round and reactive to light, extraocular movements intact, sclera anicteric, conjunctiva clear. EARS, NOSE, THROAT: No pharyngeal erythema/exudate NECK: Normal range of motion, supple without lymphadenopathy, JVD. LUNGS: Bilateral wheeze. HEART: Regular rate and rhythm, normal S1 and S2 ABDOMEN: Soft, nontender, not distended, normoactive bowel sounds, no guarding, no rebound, no masses. MUSCULOSKELETAL: Normal range of motion at all joints. No bony deformities or tenderness. No CVA tenderness. UPPER EXTREMITIES: 2+ pulses, warm, well-perfused. No cyanosis. No clubbing. No peripheral edema. LOWER EXTREMITIES: 2+ pulses, warm, well-perfused. No calf tenderness. No peripheral edema. NEUROLOGICAL: Cranial nerves II-XII intact. Normal speech. Tone/Power normal all 4 extremities. Laboratory Results - last 24 hr 09/14/18 09/14/18 09/14/18 13:20 13:28 13:28 WBC 4.4 RBC 4.58 Hgb 13.5 Hct 39.1 MCV 85.2 MCH 29.5 MCHC 34.6 RDW 15.0 Plt Count 152 MPV 9.3 Absolute Neuts (auto) 3.0 Neutrophils % 67.8 D Lymphocytes % 18.8 D Monocytes % 12.6 H Eosinophils % 0.2 D Basophils % 0.6 Nucleated RBC % 0 Sodium 136 Potassium 3.8 Chloride 100 Carbon Dioxide 30 Anion Gap 6 L BUN 12 Creatinine 1.2 Creat Clearance w eGFR > 60 Random Glucose 104 Calcium 8.9 Total Bilirubin 0.6 AST 33 ALT 22 Alkaline Phosphatase 111 Creatine Kinase 593 H Creatine Kinase Index 0.7 CK-MB (CK-2) 4.6 H Troponin I < 0.02 B-Natriuretic Peptide Total Protein 7.2 Albumin 3.7 Influenza A (Rapid) Negative Influenza B (Rapid) Negative 09/14/18 13:30 WBC RBC Hgb Hct MCV MCH MCHC RDW Plt Count MPV Absolute Neuts (auto) Neutrophils % Lymphocytes % Monocytes % Eosinophils % Basophils % Nucleated RBC % Sodium Potassium Chloride Carbon Dioxide Anion Gap BUN Creatinine Creat Clearance w eGFR Random Glucose Calcium Total Bilirubin AST ALT Alkaline Phosphatase Creatine Kinase Creatine Kinase Index CK-MB (CK-2) Troponin I B-Natriuretic Peptide 360.1 H Total Protein Albumin Influenza A (Rapid) Influenza B (Rapid) ECG - no acute St/T wave changes CXR - no acute cardiopulmonary findings. ASSESSMENT/PLAN: 57 year old Male with history of HTN, Asthma/COPD, Polysubstance Abuse (Heroin, Cocaine, Alcohol), presents with a 2 day history of SOB, cough productive of brown sputum, body aches, chills with SpO2 of 88% on Room Air as per ED physician. No fever. No hemoptysis. No chest pain/palpitations. He admits to daily alcohol use and heroin use (which he snorts), last time this am. He denies history of alcohol withdrawal. 1. Acute Hypoxic Respiratory Failure secondary to Asthma/COPD Exacerbation SpO2 reported as 88% on RA in ED No formal history of COPD but long time smoker. CXR - no acute cardiopulmonary findings. Flu negative Afebrile, Hemodynamically Stable, without leukocytosis. Will treat with Supplemental O2, DuoNebs, IV Methylpred, Azithromycin Monitor respiratory status. 2. History of Polysubstance Abuse including Alcohol, Cocaine, and Heroin just this morning. Mild drowsiness, rousable to orientation x 3. No signs of respiratory distress or depression. Pupils small but equal and reactive. Given history of heroin use this am, will monitor neuro and respiratory status overnight. No signs of alcohol withdrawal. If develops, will start Librium detox protocol. MVI, Thiamine, Folate. 3. History of HTN - not on medication - will monitor. GI Px - Protonix DVT Px - Heparin Visit type - Emergency Visit Emergency Visit: Yes ED Registration Date: 09/14/18 Care time: The patient presented to the Emergency Department on the above date and was hospitalized for further evaluation of their emergent condition. - New Patient This patient is new to me today: Yes Date on this admission: 09/14/18 - Critical Care Critical Care patient: No
[2018-09-14] MEDS: SODIUM CHLORIDE 1,000 ML IV SCH (18:54)
[2018-09-14] MEDS: methylPREDNISolone NA SUCC 40 MG/1 ML VIAL IVPB SCH (18:55)
[2018-09-14] MEDS: PANTOPRAZOLE 40 MG TABLET (FP) PO SCH (18:59)
[2018-09-14] MEDS: AZITHROMYCIN IVPB 500 MG/250 ML D5W PRE-DOCKED IVPB SCH (19:00)
[2018-09-14] MEDS ORDERED: FOLIC ACID INJECTION - 1 MG, THIAMINE HCL 100 MG, MULTIVIT INJECTION ADULT 10 ML in SOD... IVPB ONE (19:45)
[2018-09-14] MEDS: ALBUTEROL SO4 2.5/IPRATROPIUM 0.5 INH SOL 3 ML VIAL.NEB. NEB SCH (20:00)
[2018-09-14] MEDS: HEPARIN NA (PORCINE) 5,000 UNITS/ML 1ML VIAL SQ SCH (22:43)
[2018-09-15] MEDS: methylPREDNISolone NA SUCC 40 MG/1 ML VIAL IVPB SCH ×3 (01:42→17:39)
[2018-09-15] MEDS: HEPARIN NA (PORCINE) 5,000 UNITS/ML 1ML VIAL SQ SCH ×3 (05:40→21:33)
[2018-09-15 07:56] LABS: ALBUMIN 3.2 g/dl (3.4-5.0); ALK PHOS 92 U/L (45-117); ANION GAP 7 MMOL/L (8-16); BILIRUBIN,TOTAL 0.5 mg/dL (0.2-1); BLOOD UREA NITROGEN 17 mg/dL (7-18); CALCIUM 8.5 mg/dL (8.5-10.1); CHLORIDE 109 mmol/L (98-107); CO2 26 mmol/L (21-32); CREATININE 1.1 mg/dL (0.55-1.3); GLUCOSE,RANDOM 137 mg/dL (74-106); MAGNESIUM 1.9 mg/dL (1.8-2.4); POTASSIUM 4.1 mmol/L (3.5-5.1); SGOT/AST 26 U/L (15-37); SGPT/ALT 18 U/L (13-61); SODIUM 142 mmol/L (136-145); TOT PROT 6.5 g/dl (6.4-8.2)
[2018-09-15] MEDS: ALBUTEROL SO4 2.5/IPRATROPIUM 0.5 INH SOL 3 ML VIAL.NEB. NEB SCH ×4 (09:00→19:39)
[2018-09-15] MEDS: FOLIC ACID 1 MG TABLET (FP) PO SCH (09:53)
[2018-09-15] MEDS: PANTOPRAZOLE 40 MG TABLET (FP) PO SCH (09:53)
[2018-09-15] MEDS: THIAMINE HCL 100 MG TABLET (FP) PO SCH (09:53)
[2018-09-15] MEDS: MULTIVITAMINS (DAILY MVI) TABLET (FP) PO SCH (09:53)
[2018-09-15] MEDS: AZITHROMYCIN IVPB 500 MG/250 ML D5W PRE-DOCKED IVPB SCH ×2 (10:30→14:45)
--- NOTE | 2018-09-15 15:16 | PN ---
Progress Note (short form) - Note Progress Note: Still some dyspnea and cough. No chest pain/palpitations/hemoptysis. Mildly improved from presentation. Afebrile, Hemodynamically Stable. Last Vital Signs Temp Pulse Resp BP Pulse Ox 98.1 F 80 18 124/77 96 09/15/18 14:40 09/15/18 14:40 09/15/18 14:40 09/15/18 14:40 09/14/18 21:00 HEENT - Atraumatic, Normocephalic Heart - S1, S2, RRR Lungs - bilateral wheeze Abdomen - soft, non-tender. Bowel Sounds normal. Extrmities - no edema. Laboratory Results - last 24 hr 09/14/18 09/15/18 09/15/18 13:28 06:30 06:30 Sodium 142 Potassium 4.1 Chloride 109 H Carbon Dioxide 26 Anion Gap 7 L BUN 17 Creatinine 1.1 Creat Clearance w eGFR > 60 Random Glucose 137 H Calcium 8.5 Magnesium 1.9 Total Bilirubin 0.5 AST 26 ALT 18 Alkaline Phosphatase 92 Creatine Kinase 324 H Creatine Kinase Index 0.7 1.0 CK-MB (CK-2) 4.6 H 3.4 Total Protein 6.5 Albumin 3.2 L Current Medications Generic Name Dose Route Start Last Admin Trade Name Freq PRN Reason Stop Dose Admin Albuterol/Ipratropium 1 amp 09/14/18 18:17 Duoneb - NEB Q6H PRN SHORTNESS OF BREATH Albuterol/Ipratropium 1 amp 09/14/18 20:00 09/15/18 12:25 Duoneb - NEB Not Given RQID ACE Azithromycin 500 mg 09/14/18 18:30 09/15/18 10:30 Zithromax 500mg Ivpb (Pre-Docked) IVPB Not Given DAILY ACE Folic Acid 1 mg 09/15/18 10:00 09/15/18 09:53 Folic Acid - PO 1 mg DAILY ACE Administration Heparin Sodium (Porcine) 5,000 unit 09/14/18 22:00 09/15/18 15:03 Heparin - SQ Not Given TID ACE Sodium Chloride 1,000 mls @ 100 mls/hr 09/14/18 18:30 09/14/18 18:54 Normal Saline - IV 100 mls/hr ASDIR ACE Administration Methylprednisolone Sodium Succinate 40 mg 09/14/18 18:30 12/23/18 11:09 Solu-Medrol - IVPB 40 mg Q8H-IV ACE Administration Multivitamins/Minerals/Vitamin C 1 tab 09/15/18 10:00 09/15/18 09:53 Tab-A-Vit - PO 1 tab DAILY ACE Administration Pantoprazole Sodium 40 mg 09/14/18 18:15 09/15/18 09:53 Protonix - PO 40 mg DAILY ACE Administration Thiamine HCl 100 mg 09/15/18 10:00 09/15/18 09:53 Vitamin B1 - PO 100 mg DAILY ACE Administration ASSESSMENT/PLAN 57 year old Male with history of HTN, Asthma/COPD, Polysubstance Abuse (Heroin, Cocaine, Alcohol), presents with a 2 day history of SOB, cough productive of brown sputum, body aches, chills with SpO2 of 88% on Room Air as per ED physician. No fever. No hemoptysis. No chest pain/palpitations. He admits to daily alcohol use and heroin use (which he snorts), last time this am. He denies history of alcohol withdrawal. 1. Acute Hypoxic Respiratory Failure secondary to Asthma/COPD Exacerbation SpO2 reported as 88% on RA in ED No formal history of COPD but long time smoker. CXR - no acute cardiopulmonary findings. Flu negative Afebrile, Hemodynamically Stable, without leukocytosis. Some improvement since admission. Continue Supplemental O2, DuoNebs, IV Methylpred, Azithromycin Monitor respiratory status. 2. History of Polysubstance Abuse including Alcohol, Cocaine, and Heroin (last use 09/14/18) AAO x3. No signs of respiratory distress or depression. Pupils small but equal and reactive. No signs of withdrawal. If develops, will start detox protocol. MVI, Thiamine, Folate. Addiction Medicine/Detox consult placed. 3. History of HTN - not on medication - will monitor. GI Px - Protonix DVT Px - Heparin Visit type - Emergency Visit Emergency Visit: Yes ED Registration Date: 09/14/18 Care time: The patient presented to the Emergency Department on the above date and was hospitalized for further evaluation of their emergent condition. - New Patient This patient is new to me today: No - Critical Care Critical Care patient: No - Discharge Referral Referred to [facility] Med P.C.: No
[2018-09-15] MEDS: SODIUM CHLORIDE 1,000 ML IV SCH (17:44)
[2018-09-16] MEDS: methylPREDNISolone NA SUCC 40 MG/1 ML VIAL IVPB SCH ×3 (02:47→18:16)
[2018-09-16] MEDS: SODIUM CHLORIDE 1,000 ML IV SCH (02:49)
[2018-09-16] MEDS: HEPARIN NA (PORCINE) 5,000 UNITS/ML 1ML VIAL SQ SCH ×3 (05:38→21:02)
[2018-09-16] MEDS: ALBUTEROL SO4 2.5/IPRATROPIUM 0.5 INH SOL 3 ML VIAL.NEB. NEB SCH ×4 (07:58→21:20)
[2018-09-16] MEDS: FOLIC ACID 1 MG TABLET (FP) PO SCH (10:07)
[2018-09-16] MEDS: MULTIVITAMINS (DAILY MVI) TABLET (FP) PO SCH (10:07)
[2018-09-16] MEDS: PANTOPRAZOLE 40 MG TABLET (FP) PO SCH (10:07)
[2018-09-16] MEDS: THIAMINE HCL 100 MG TABLET (FP) PO SCH (10:07)
[2018-09-16] MEDS: AZITHROMYCIN IVPB 500 MG/250 ML D5W PRE-DOCKED IVPB SCH (10:07)
--- NOTE | 2018-09-16 11:57 | CON.PULM ---
Consult Consult Specialty:: PULM/CCM Referred by:: Hospitalist Reason for Consultation:: SOB - History of Present Illness Chief Complaint: SOB History of Present Illness: 57 M, long smoking history since a teenager, HTN, Asthma/COPD, and Polysubstance Abuse (Heroin, Cocaine, Alcohol). Admitted via the ER due to 2 to 3 days of SOB, CHRISTINE, productive cough, myalgias, and chills. No fever. No hemoptysis. No chest pain/palpitations. Denies travel history or sick contacts. CXR: No acute process. Has never had screening CT. - History Source History Provided By: Patient Limitations to Obtaining History: No Limitations - Past Medical History Cardio/Vascular: Yes: HTN (not on meds) Pulmonary: Yes: Bronchitis. No: Asthma, O2 Dependent, Previously Intubated, Pulmonary Embolus, Pulmonary Fibrosis, Sleep Apnea Psych: Yes: Addictions (heroine) - Past Surgical History Past Surgical History: Yes: None - Alcohol/Substance Use Hx Alcohol Use: Yes History of Substance Use: reports: Cocaine, Heroin Date of Last Use: 09/18/16 - Smoking History Smoking history: Current every day smoker Have you smoked in the past 12 months: Yes Aproximately how many cigarettes per day: 4 - Social History Occupation: unemployed History of Recent Travel: No Home Medications - Allergies Allergies/Adverse Reactions: Allergies Allergy/AdvReac Type Severity Reaction Status Date / Time No Known Drug Allergies Allergy Verified 09/14/18 13:04 soy AdvReac Severe Vomiting Verified 09/14/18 13:04 - Home Medications Home Medications: Ambulatory Orders NK [No Known Home Medication] 08/23/18 Family Disease History - Family Disease History Family Disease History: Diabetes: Father (), Mother () Review of Systems - Review of Systems Constitutional: reports: Chills, Malaise, Weakness. denies: Fever, Night Sweats , Unintentional Wgt. Loss Eyes: reports: No Symptoms HENT: reports: No Symptoms Neck: reports: No Symptoms Cardiovascular: reports: Shortness of Breath. denies: Chest Pain, Edema, Palpitations Respiratory: reports: Cough, SOB, SOB on Exertion, Wheezing. denies: Hemoptysis , Snoring Gastrointestinal: reports: No Symptoms Genitourinary: reports: No Symptoms Breasts: reports: No Symptoms Reported Musculoskeletal: reports: No Symptoms Integumentary: reports: No Symptoms Neurological: reports: No Symptoms Endocrine: reports: No Symptoms Hematology/Lymphatic: reports: No Symptoms Psychiatric: reports: No Symptoms Physical Exam Vital Sings: Vital Signs Temperature 98.6 F 09/16/18 09:09 Pulse Rate 67 09/16/18 09:09 Respiratory Rate 18 09/16/18 09:09 Blood Pressure 133/65 09/16/18 09:09 O2 Sat by Pulse Oximetry (%) 96 09/16/18 10:00 Constitutional: Yes: No Distress, Calm Eyes: Yes: Conjunctiva Clear, EOM Intact HENT: Yes: Atraumatic, Normocephalic Neck: Yes: Supple Cardiovascular: Yes: Regular Rate and Rhythm Respiratory: Yes: Cough, Diminished, Rhonchi, SOB, SOB on Exertion, Tachypnea, Wheezes. No: Accessory Muscle Use, Rales, Stridor ...Inspection: Yes: WNL ...Clubbing: No Gastrointestinal: Yes: Normal Bowel Sounds, Soft Renal/: Yes: WNL Musculoskeletal: Yes: WNL Extremities: Yes: WNL Edema: No Peripheral Pulses WNL: Yes Integumentary: Yes: WNL Neurological: Yes: WNL, Alert, Oriented ...Motor Strength: WNL Psychiatric: Yes: WNL, Alert, Oriented Labs: CBC, BMP 09/14/18 13:28 09/15/18 06:30 Imaging - Results Chest X-ray: Report Reviewed, Image Reviewed Problem List - Problems (1) COPD exacerbation Code(s): J44.1 - CHRONIC OBSTRUCTIVE PULMONARY DISEASE W (ACUTE) EXACERBATION (2) Alcohol dependence with uncomplicated withdrawal Code(s): F10.230 - ALCOHOL DEPENDENCE WITH WITHDRAWAL, UNCOMPLICATED (3) Nicotine dependence Code(s): F17.200 - NICOTINE DEPENDENCE, UNSPECIFIED, UNCOMPLICATED Qualifiers: Nicotine product type: cigarettes Substance use status: in withdrawal Qualified Code(s): F17.213 - Nicotine dependence, cigarettes, with withdrawal (4) Cocaine dependence Code(s): F14.20 - COCAINE DEPENDENCE, UNCOMPLICATED Qualifiers: Substance use status: uncomplicated Qualified Code(s): F14.20 - Cocaine dependence, uncomplicated (5) HTN (hypertension) Code(s): I10 - ESSENTIAL (PRIMARY) HYPERTENSION Qualifiers: Hypertension type: essential hypertension Qualified Code(s): I10 - Essential (primary) hypertension (6) Heroin dependence Code(s): F11.20 - OPIOID DEPENDENCE, UNCOMPLICATED (7) Substance-induced sleep disorder Code(s): F19.982 - OTH PSYCHOACTIVE SUBSTANCE USE, UNSP W SLEEP DISORDER; T50.904A - POISONING BY UNSP DRUG/MEDS/BIOL SUBST, UNDETERMINED, INIT Assessment/Plan Low dose CT No smoking counseled Avoidance of illicit substances counseled O2 as needed BD TX Zmax noted VTE prophylaxis PFTs after discharge once stable On D/C should be on LAMA/LABA Will follow Thank you. Dr Greene
--- NOTE | 2018-09-16 14:13 | PN ---
Progress Note (short form) - Note Progress Note: SUBJECTIVE Still some dyspnea and cough. No chest pain/palpitations/hemoptysis. Reports soft stool. No diarrhea/melena/hematochezia. OBJECTIVE Afebrile, Hemodynamically Stable. Last Vital Signs Temp Pulse Resp BP Pulse Ox 98.6 F 67 18 133/65 96 09/16/18 09:09 09/16/18 09:09 09/16/18 09:09 09/16/18 09:09 09/16/18 10:00 HEENT - Atraumatic, Normocephalic Heart - S1, S2, RRR Lungs - bilateral wheeze Abdomen - soft, non-tender. Bowel Sounds normal. Extrmities - no edema. Neuro - AAO x 3. Tone/Power normal all 4 extremities. Laboratory Tests 09/14/18 09/14/18 09/14/18 13:20 13:28 13:28 WBC 4.4 RBC 4.58 Hgb 13.5 Hct 39.1 MCV 85.2 MCH 29.5 MCHC 34.6 RDW 15.0 Plt Count 152 MPV 9.3 Absolute Neuts (auto) 3.0 Neutrophils % 67.8 D Lymphocytes % 18.8 D Monocytes % 12.6 H Eosinophils % 0.2 D Basophils % 0.6 Nucleated RBC % 0 Sodium 136 Potassium 3.8 Chloride 100 Carbon Dioxide 30 Anion Gap 6 L BUN 12 Creatinine 1.2 Creat Clearance w eGFR > 60 Random Glucose 104 Calcium 8.9 Magnesium Total Bilirubin 0.6 AST 33 ALT 22 Alkaline Phosphatase 111 Creatine Kinase 593 H Creatine Kinase Index 0.7 CK-MB (CK-2) 4.6 H Troponin I < 0.02 B-Natriuretic Peptide Total Protein 7.2 Albumin 3.7 Influenza A (Rapid) Negative Influenza B (Rapid) Negative 09/14/18 09/15/18 09/15/18 13:30 06:30 06:30 WBC RBC Hgb Hct MCV MCH MCHC RDW Plt Count MPV Absolute Neuts (auto) Neutrophils % Lymphocytes % Monocytes % Eosinophils % Basophils % Nucleated RBC % Sodium 142 Potassium 4.1 Chloride 109 H Carbon Dioxide 26 Anion Gap 7 L BUN 17 Creatinine 1.1 Creat Clearance w eGFR > 60 Random Glucose 137 H Calcium 8.5 Magnesium 1.9 Total Bilirubin 0.5 AST 26 ALT 18 Alkaline Phosphatase 92 Creatine Kinase 324 H Creatine Kinase Index 1.0 CK-MB (CK-2) 3.4 Troponin I B-Natriuretic Peptide 360.1 H Total Protein 6.5 Albumin 3.2 L Influenza A (Rapid) Influenza B (Rapid) Current Medications Generic Name Dose Route Start Last Admin Trade Name Freq PRN Reason Stop Dose Admin Albuterol/Ipratropium 1 amp 09/14/18 18:17 Duoneb - NEB Q6H PRN SHORTNESS OF BREATH Albuterol/Ipratropium 1 amp 09/14/18 20:00 09/16/18 11:21 Duoneb - NEB 1 amp RQID ACE Administration Azithromycin 500 mg 09/14/18 18:30 09/16/18 10:07 Zithromax 500mg Ivpb (Pre-Docked) IVPB 500 mg DAILY ACE Administration Folic Acid 1 mg 09/15/18 10:00 09/16/18 10:07 Folic Acid - PO 1 mg DAILY ACE Administration Heparin Sodium (Porcine) 5,000 unit 09/14/18 22:00 09/16/18 05:38 Heparin - SQ Not Given TID ACE Sodium Chloride 1,000 mls @ 100 mls/hr 09/14/18 18:30 09/16/18 02:49 Normal Saline - IV 100 mls/hr ASDIR ACE Administration Methylprednisolone Sodium Succinate 40 mg 09/14/18 18:30 09/16/18 10:07 Solu-Medrol - IVPB 40 mg Q8H-IV ACE Administration Multivitamins/Minerals/Vitamin C 1 tab 09/15/18 10:00 09/16/18 10:07 Tab-A-Vit - PO 1 tab DAILY ACE Administration Pantoprazole Sodium 40 mg 09/14/18 18:15 09/16/18 10:07 Protonix - PO 40 mg DAILY ACE Administration Thiamine HCl 100 mg 09/15/18 10:00 09/16/18 10:07 Vitamin B1 - PO 100 mg DAILY ACE Administration ASSESSMENT/PLAN 57 year old Male with history of HTN, Asthma/COPD, Polysubstance Abuse (Heroin, Cocaine, Alcohol), presented with a 2 day history of SOB, cough productive of brown sputum, body aches, chills with SpO2 of 88% on Room Air as per ED physician. No fever. No hemoptysis. No chest pain/palpitations. He admits to daily alcohol use and heroin use (which he snorts), last time this am. He denies history of alcohol withdrawal. 1. Acute Hypoxic Respiratory Failure secondary to Asthma/COPD Exacerbation SpO2 reported as 88% on RA in ED No formal history of COPD but long time smoker. CXR - no acute cardiopulmonary findings. Flu negative Afebrile, Hemodynamically Stable, without leukocytosis. Some improvement since admission but still quite wheezy. Continue Supplemental O2 prn, DuoNebs, IV Methylpred, Azithromycin Monitor respiratory status. Pulmonary consulted and ordered CT Chest, result pending. 2. History of Polysubstance Abuse including Alcohol, Cocaine, and Heroin (last use 09/14/18) AAO x3. No signs of respiratory distress or depression. No signs of withdrawal. If develops, will start detox protocol. MVI, Thiamine, Folate. Addiction Medicine/Detox consulted. 3. History of HTN - not on medication - will monitor. 4. Change in bowel habit over pat 24 hours - reports soft stool - denies diarrhea/melena/hematochezia. No abdominal pain/N/V/fever. If any diarrheal stool, will consider Cdiff. GI Px - Protonix DVT Px - Heparin Visit type - Emergency Visit Emergency Visit: Yes ED Registration Date: 09/14/18 Care time: The patient presented to the Emergency Department on the above date and was hospitalized for further evaluation of their emergent condition. - New Patient This patient is new to me today: No - Critical Care Critical Care patient: No - Discharge Referral Referred to [facility] Med P.C.: No
[2018-09-16] MEDS ORDERED: INSULIN (NOVOLOG) ASPART 100 UNITS/ML 10ML VIAL ONE (18:06)
[2018-09-16] MEDS ORDERED: PT OWN MED DRAWER 7, Y5N ONE (18:06)
--- NOTE | 2018-09-17 00:41 | PN ---
Physical Exam: Entered in Error Visit type - Emergency Visit Emergency Visit: No - New Patient This patient is new to me today: Yes Date on this admission: 09/19/18 - Critical Care Critical Care patient: No
[2018-09-17] MEDS: methylPREDNISolone NA SUCC 40 MG/1 ML VIAL IVPB SCH ×2 (01:06→10:01)
[2018-09-17] MEDS: HEPARIN NA (PORCINE) 5,000 UNITS/ML 1ML VIAL SQ SCH (05:32)
[2018-09-17] MEDS: ALBUTEROL SO4 2.5/IPRATROPIUM 0.5 INH SOL 3 ML VIAL.NEB. NEB SCH ×2 (08:44→12:20)
[2018-09-17] MEDS: MULTIVITAMINS (DAILY MVI) TABLET (FP) PO SCH (09:59)
[2018-09-17] MEDS: PANTOPRAZOLE 40 MG TABLET (FP) PO SCH (09:59)
[2018-09-17] MEDS: FOLIC ACID 1 MG TABLET (FP) PO SCH (10:01)
[2018-09-17] MEDS: THIAMINE HCL 100 MG TABLET (FP) PO SCH (10:01)
[2018-09-17] MEDS: AZITHROMYCIN IVPB 500 MG/250 ML D5W PRE-DOCKED IVPB SCH (10:02)
[2018-09-17 10:03] VITALS: BP 163/86; TEMP 98
--- NOTE | 2018-09-17 10:04 | PN ---
Progress Note (short form) - Note Progress Note: Feels overall better today. Wants to go home. CHRISTINE / SOB / cough are improving. CT: chronic changes likely due to prolonged smoking history and illicit substance abuse. Intake & Output 09/14/18 09/15/18 09/16/18 09/17/18 23:59 23:59 23:59 23:59 Intake Total 500 1954 2330 230 Balance 500 1954 2329 230 Weight 173 lb 1 oz 175 lb 5 oz Last Vital Signs Temp Pulse Resp BP Pulse Ox 98.2 F 59 L 20 144/86 94 L 09/16/18 22:22 09/16/18 22:22 09/16/18 22:22 09/16/18 22:22 09/16/18 21:00 Active Medications Albuterol/Ipratropium (Duoneb -) 1 amp NEB Q6H PRN PRN Reason: SHORTNESS OF BREATH Albuterol/Ipratropium (Duoneb -) 1 amp NEB RQID [facility] Last Admin: 09/17/18 08:44 Dose: 1 amp Azithromycin (Zithromax 500mg Ivpb (Pre-Docked)) 500 mg IVPB DAILY [facility] Last Admin: 09/17/18 10:02 Dose: 500 mg Folic Acid (Folic Acid -) 1 mg PO DAILY [facility] Last Admin: 09/17/18 10:01 Dose: 1 mg Heparin Sodium (Porcine) (Heparin -) 5,000 unit SQ TID [facility] Last Admin: 09/17/18 05:32 Dose: Not Given Methylprednisolone Sodium Succinate (Solu-Medrol -) 40 mg IVPB Q8H-IV [facility] Last Admin: 09/17/18 10:01 Dose: 40 mg Multivitamins/Minerals/Vitamin C (Tab-A-Vit -) 1 tab PO DAILY [facility] Last Admin: 09/17/18 09:59 Dose: 1 tab Pantoprazole Sodium (Protonix -) 40 mg PO DAILY [facility] Last Admin: 09/17/18 09:59 Dose: 40 mg Thiamine HCl (Vitamin B1 -) 100 mg PO DAILY [facility] Last Admin: 09/17/18 10:01 Dose: 100 mg Constitutional: Yes: No Distress, Calm Eyes: Yes: Conjunctiva Clear, EOM Intact HENT: Yes: Atraumatic, Normocephalic Neck: Yes: Supple Cardiovascular: Yes: Regular Rate and Rhythm Respiratory: Yes: Cough, Diminished, few scattered rhonchi. No: Accessory Muscle Use, Rales, Stridor, wheeze ...Inspection: Yes: WNL ...Clubbing: No Gastrointestinal: Yes: Normal Bowel Sounds, Soft Renal/: Yes: WNL Musculoskeletal: Yes: WNL Extremities: Yes: WNL Edema: No Peripheral Pulses WNL: Yes Integumentary: Yes: WNL Neurological: Yes: WNL, Alert, Oriented ...Motor Strength: WNL Psychiatric: Yes: WNL, Alert, Oriented Labs: Problem List - Problems (1) COPD exacerbation Code(s): J44.1 - CHRONIC OBSTRUCTIVE PULMONARY DISEASE W (ACUTE) EXACERBATION (2) Alcohol dependence with uncomplicated withdrawal Code(s): F10.230 - ALCOHOL DEPENDENCE WITH WITHDRAWAL, UNCOMPLICATED (3) Nicotine dependence Code(s): F17.200 - NICOTINE DEPENDENCE, UNSPECIFIED, UNCOMPLICATED Qualifiers: Nicotine product type: cigarettes Substance use status: in withdrawal Qualified Code(s): F17.213 - Nicotine dependence, cigarettes, with withdrawal (4) Cocaine dependence Code(s): F14.20 - COCAINE DEPENDENCE, UNCOMPLICATED Qualifiers: Substance use status: uncomplicated Qualified Code(s): F14.20 - Cocaine dependence, uncomplicated (5) HTN (hypertension) Code(s): I10 - ESSENTIAL (PRIMARY) HYPERTENSION Qualifiers: Hypertension type: essential hypertension Qualified Code(s): I10 - Essential (primary) hypertension (6) Heroin dependence Code(s): F11.20 - OPIOID DEPENDENCE, UNCOMPLICATED (7) Substance-induced sleep disorder Code(s): F19.982 - OTH PSYCHOACTIVE SUBSTANCE USE, UNSP W SLEEP DISORDER; T50.904A - POISONING BY UNSP DRUG/MEDS/BIOL SUBST, UNDETERMINED, INIT Assessment/Plan No smoking counseled Avoidance of illicit substances counseled PFTs after discharge once stable Should be D/C on LAMA/LABA Check O2 saturation pre and post ambulation There is no Pulmonary contraindication for D/C home Dr Greene Problem List - Problems (1) COPD exacerbation Code(s): J44.1 - CHRONIC OBSTRUCTIVE PULMONARY DISEASE W (ACUTE) EXACERBATION (2) Alcohol dependence with uncomplicated withdrawal Code(s): F10.230 - ALCOHOL DEPENDENCE WITH WITHDRAWAL, UNCOMPLICATED (3) Nicotine dependence Code(s): F17.200 - NICOTINE DEPENDENCE, UNSPECIFIED, UNCOMPLICATED Qualifiers: Nicotine product type: cigarettes Substance use status: in withdrawal Qualified Code(s): F17.213 - Nicotine dependence, cigarettes, with withdrawal (4) Cocaine dependence Code(s): F14.20 - COCAINE DEPENDENCE, UNCOMPLICATED Qualifiers: Substance use status: uncomplicated Qualified Code(s): F14.20 - Cocaine dependence, uncomplicated (5) HTN (hypertension) Code(s): I10 - ESSENTIAL (PRIMARY) HYPERTENSION Qualifiers: Hypertension type: essential hypertension Qualified Code(s): I10 - Essential (primary) hypertension (6) Heroin dependence Code(s): F11.20 - OPIOID DEPENDENCE, UNCOMPLICATED (7) Substance-induced sleep disorder Code(s): F19.982 - OTH PSYCHOACTIVE SUBSTANCE USE, UNSP W SLEEP DISORDER; T50.904A - POISONING BY UNSP DRUG/MEDS/BIOL SUBST, UNDETERMINED, INIT
[2018-09-17 12:22] VITALS: PULSE 88
== END 2018-09-17 13:15 | disposition home or self-care (01) | DRG 133 ==
LOC: JER 12:57 → JERBED 15:19 → J5S 18:44
PROVIDERS: ATTEND Internal Medicine
DX: J96.01 Acute respiratory failure with hypoxia (principal); F10.230 Alcohol dependence with withdrawal, uncomplicated; J44.1 Chronic obstructive pulmonary disease with (acute) exacerbation; I10 Essential (primary) hypertension; F19.10 Other psychoactive substance abuse, uncomplicated; F11.20 Opioid dependence, uncomplicated; F14.20 Cocaine dependence, uncomplicated; F17.213 Nicotine dependence, cigarettes, with withdrawal; T50.904A Poisoning by unspecified drugs, medicaments and biological substances, undetermined, initial encounter; F19.982 Other psychoactive substance use, unspecified with psychoactive substance-induced sleep disorder; J45.901 Unspecified asthma with (acute) exacerbation
CPT/HCPCS: 36415; 71045-TC-FY; 71250-TC; 80053; 82550; 82553; 83735; 83880; 84484; 85025; 87804; 93005; 93010; 94640; 94761; 99283-25; J1644; J7030

== ENCOUNTER 2020-08-28 15:38 | Inpatient (IN) | payer OTHER ==
[2020-08-28 15:59] VITALS: BMI 26.6
[2020-08-28 17:12] LABS: BASO % 0.5 % (0-2.0); EOS % 0.3 % (0-4.5); HEMATOCRIT 43.7 % (35.4-49); HEMOGLOBIN 14.4 GM/dL (11.7-16.9); LYMPH % 11.2 % (8-40); MCHC 32.9 g/dl (32.0-35.9); MEAN CELL VOLUME 88.3 fl (80-96); MEAN PLT VOLUME 9.1 fl (7.5-11.1); MONO % 8.4 % (3.8-10.2); NEUT % 79.6 % (42.8-82.8); PLATELET COUNT 161 K/MM3 (134-434); RBC 4.95 M/mm3 (4.00-5.60); RDW 13.9 % (11.9-15.9); WHITE BLOOD COUNT 9.4 K/mm3 (4.0-10.0)
[2020-08-28 17:32] LABS: POTASSIUM 3.9 mmol/L (3.5-5.1)
[2020-08-28 17:34] LABS: ALBUMIN 3.9 g/dl (3.4-5.0); CALCIUM 8.5 mg/dL (8.5-10.1)
[2020-08-28 17:35] LABS: BLOOD UREA NITROGEN 18.6 mg/dL (7-18)
[2020-08-28 17:38] LABS: CREATININE 1.2 mg/dL (0.55-1.3)
[2020-08-28 17:39] LABS: BILIRUBIN,TOTAL 0.3 mg/dL (0.2-1); TOT PROT 6.8 g/dl (6.4-8.2)
[2020-08-28 17:39] LABS: COCAINE, UR NEGATIVE ng/ml (CUTOFF=300); PHENCYCLIDINE,URINE NEGATIVE ng/ml (CUTOFF=25); URINE BARBITURATES NEGATIVE ng/ml (CUTOFF=200)
[2020-08-28 17:48] LABS: METHADONE, UR NEGATIVE ng/ml (CUTOFF=300); URINE AMPHETAMINES NEGATIVE ng/ml (CUTOFF=500); URINE BENZODIAZEPINES NEGATIVE ng/ml (CUTOFF=200)
[2020-08-28 17:57] LABS: OPIATES, URI POSITIVE ng/ml (CUTOFF=300)
[2020-08-28] MEDS ORDERED: ASPIRIN 81 MG CHEWABLE TABLETS PO ONE (21:43)
[2020-08-28] MEDS ORDERED: ENOXAPARIN NA (PORCINE) 80 MG/0.8 ML DISP.SYRIN SQ ONE ×2 (21:45→22:26)
[2020-08-28] MEDS ORDERED: ASPIRIN 81 MG CHEWABLE TABLETS ONE (22:26)
[2020-08-29 00:18] LABS: INR 1.03 (0.83-1.09); PROTHROMBIN TIME (PATIENT) 12.6 SEC (9.7-13.0)
[2020-08-29 00:20] LABS: ACTIVATED PTT 34.5 SECONDS (25.2-36.5)
[2020-08-29 03:57] LABS: CHOLESTEROL 188 mg/dL (50-200); TRIGLYCERIDES 54 mg/dL (0-150)
[2020-08-29 03:58] LABS: LDL CHOLESTEROL (ONLY SJRH) 94 mg/dL (5-100)
[2020-08-29 04:00] LABS: HDL CHOLESTEROL 86 mg/dL (40-60)
[2020-08-29 07:01] LABS: EOS % 0.3 % (0-4.5); HEMATOCRIT 41.3 % (35.4-49); HEMOGLOBIN 13.3 GM/dL (11.7-16.9); LYMPH % 40.1 % (8-40); MCH 28.4 pg (25.7-33.7); MCHC 32.1 g/dl (32.0-35.9); MEAN CELL VOLUME 88.2 fl (80-96); MEAN PLT VOLUME 9.2 fl (7.5-11.1); MONO % 10.7 % (3.8-10.2); NEUT % 47.9 % (42.8-82.8); PLATELET COUNT 156 K/MM3 (134-434); RBC 4.68 M/mm3 (4.00-5.60); RDW 13.9 % (11.9-15.9); WHITE BLOOD COUNT 6.3 K/mm3 (4.0-10.0)
[2020-08-29 07:13] LABS: INR 1.07 (0.83-1.09); PROTHROMBIN TIME (PATIENT) 13.1 SEC (9.7-13.0)
[2020-08-29 07:19] LABS: POTASSIUM 4.2 mmol/L (3.5-5.1)
[2020-08-29 07:24] LABS: CALCIUM 8.9 mg/dL (8.5-10.1)
[2020-08-29 07:25] LABS: ALBUMIN 3.6 g/dl (3.4-5.0); BLOOD UREA NITROGEN 19.3 mg/dL (7-18); MAGNESIUM 1.8 mg/dL (1.8-2.4)
[2020-08-29 07:28] LABS: CREATININE 1.2 mg/dL (0.55-1.3); PHOSPHOROUS 2.9 mg/dL (2.5-4.9)
[2020-08-29 07:29] LABS: BILIRUBIN,TOTAL 0.9 mg/dL (0.2-1); TOT PROT 6.6 g/dl (6.4-8.2)
[2020-08-29] MEDS ORDERED: MAGNESIUM SULF 50% (8.12 MEQ/2 ML-1 GM VIAL) IVPB ONE (09:06)
[2020-08-29] MEDS: ENOXAPARIN NA (PORCINE) 80 MG/0.8 ML DISP.SYRIN SQ SCH ×2 (10:23→10:59)
[2020-08-29 13:18] LABS: URINE APPEARANCE CLEAR; URINE BILIRUBIN NEGATIVE (NEGATIVE); URINE COLOR YELLOW; URINE GLUCOSE (UA) NEGATIVE (NEGATIVE); URINE KETONE NEGATIVE (NEGATIVE); URINE LEUK ESTERASE NEGATIVE (NEGATIVE); URINE NITRITE NEGATIVE (NEGATIVE); URINE PROTEIN NEGATIVE (NEGATIVE)
[2020-08-29 14:36] VITALS: BP 124/74; PULSE 63; TEMP 98.4
== END 2020-08-29 16:07 | disposition home or self-care (01) | DRG 816 ==
LOC: JER 15:38 → JERBED 21:54 → J4W 08-29 04:09
PROVIDERS: ADMIT Internal Medicine; ATTEND Internal Medicine
DX: T40.1X1A Poisoning by heroin, accidental (unintentional), initial encounter (principal); F14.20 Cocaine dependence, uncomplicated; F11.20 Opioid dependence, uncomplicated; J44.9 Chronic obstructive pulmonary disease, unspecified; F10.10 Alcohol abuse, uncomplicated; F17.210 Nicotine dependence, cigarettes, uncomplicated; R55 Syncope and collapse; I10 Essential (primary) hypertension; R77.8 Other specified abnormalities of plasma proteins; Y92.89 Other specified places as the place of occurrence of the external cause
CPT/HCPCS: 36415; 70450-TC; 71046-TC-FY; 73030-TC-LT-FY; 80053; 80061; 80307; 81003; 82550; 82553; 83036; 83721; 83735; 84100; 84443; 84484; 85025; 85610; 85730; 93005; 93010; 93880-TC; 99285-25; C9803; U0003

== ENCOUNTER 2020-11-23 16:19 | Inpatient (IN) | payer OTHER ==
[2020-11-23 18:53] VITALS: BMI 25.8
[2020-11-23] MEDS ORDERED: MAGNESIUM HYDROX 2400MG/30ML ORAL SUSPENSION 30 ML CUP PO PRN (21:35)
[2020-11-23] MEDS ORDERED: MAGNESIUM CITRATE 300 ML BOTTLE PO PRN (21:35)
[2020-11-23] MEDS ORDERED: hydrOXYzine PAMOATE 25 MG CAPSULE (FP) PO PRN (21:35)
[2020-11-23] MEDS ORDERED: ACETAMINOPHEN 325 MG TABLET (FP) PO PRN ×2 (21:35)
[2020-11-23] MEDS ORDERED: MAG HYDROX/AL HYDROX/SIMETH 30 ML UNIT-DOSE CUP PO PRN (21:35)
[2020-11-23] MEDS ORDERED: IBUPROFEN 400 MG TABLET (FP) PO PRN (21:35)
[2020-11-23] MEDS ORDERED: BISMUTH SUBSALICYLATE 524 MG/30 ML UD PO PRN (21:35)
[2020-11-23] MEDS ORDERED: ONDANSETRON *ODT* 4 MG TABLET SL PRN (21:35)
[2020-11-23] MEDS ORDERED: NICOTINE POLACRILEX 2 MG GUM BUC PRN (21:35)
[2020-11-23] MEDS ORDERED: METHOCARBAMOL 500 MG TABLET PO PRN (21:35)
[2020-11-23] MEDS ORDERED: MENTHOL/PHENOL 1 EACH UD MM PRN (21:35)
[2020-11-23] MEDS ORDERED: cloNIDine HCL 0.1 MG TABLET PO PRN (21:38)
[2020-11-23] MEDS: THIAMINE HCL 100 MG TABLET (FP) PO SCH (23:49)
[2020-11-23] MEDS: MELATONIN 5 MG TABLETS PO SCH (23:50)
[2020-11-24] MEDS ORDERED: METHADONE HCL 10 MG TABLET (FOR DETOX USE ONLY) PO ONE ×2 (10:00→10:35)
[2020-11-24] MEDS ORDERED: METHADONE HCL 10 MG TABLET (FOR DETOX USE ONLY) ONE (10:40)
[2020-11-24] MEDS: PRENATAL VITAMINS W/ FOLIC ACID TABLET (FP) PO SCH (10:41)
[2020-11-24] MEDS: ALBUTEROL SO4 HFA INHALER IH SCH ×3 (10:46→23:29)
[2020-11-24 11:37] LABS: CALCIUM 8.9 mg/dL (8.5-10.1)
[2020-11-24 11:38] LABS: ALBUMIN 3.3 g/dl (3.4-5.0)
[2020-11-24 11:39] LABS: HEMATOCRIT 38.7 % (35.4-49); HEMOGLOBIN 12.9 GM/dL (11.7-16.9); MCH 28.5 pg (25.7-33.7); MCHC 33.2 g/dl (32.0-35.9); MEAN CELL VOLUME 85.7 fl (80-96); MEAN PLT VOLUME 9.6 fl (7.5-11.1); PLATELET COUNT 176 K/MM3 (134-434); RBC 4.52 M/mm3 (4.00-5.60); RDW 13.7 % (11.9-15.9); WHITE BLOOD COUNT 4.5 K/mm3 (4.0-10.0)
[2020-11-24 11:43] LABS: BILIRUBIN,TOTAL 0.6 mg/dL (0.2-1); TOT PROT 6.1 g/dl (6.4-8.2)
[2020-11-24 11:45] LABS: POTASSIUM 4.4 mmol/L (3.5-5.1)
[2020-11-24] MEDS: CLOTRIMAZOLE 1% CREAM 15 GM TUBE TP SCH (23:29)
[2020-11-24] MEDS: THIAMINE HCL 100 MG TABLET (FP) PO SCH (23:29)
[2020-11-24] MEDS: MELATONIN 5 MG TABLETS PO SCH (23:29)
[2020-11-25] MEDS: ALBUTEROL SO4 HFA INHALER IH SCH ×5 (06:01→23:18)
[2020-11-25] MEDS ORDERED: METHADONE HCL 10 MG TABLET (FOR DETOX USE ONLY) PO ONE (10:00)
[2020-11-25] MEDS: CLOTRIMAZOLE 1% CREAM 15 GM TUBE TP SCH ×2 (11:15→23:17)
[2020-11-25] MEDS: PRENATAL VITAMINS W/ FOLIC ACID TABLET (FP) PO SCH (11:16)
[2020-11-25 13:20] VITALS: BP 123/67; PULSE 63; TEMP 98
[2020-11-25] MEDS: MELATONIN 5 MG TABLETS PO SCH (23:17)
[2020-11-25] MEDS: THIAMINE HCL 100 MG TABLET (FP) PO SCH (23:18)
[2020-11-26] MEDS ORDERED: METHADONE HCL 10 MG TABLET (FOR DETOX USE ONLY) PO ONE (10:00)
== END 2020-11-25 17:16 | disposition left against medical advice (07) | DRG 770 ==
LOC: YASAS 16:19 → Y3N 11-24 10:54
PROVIDERS: ADMIT Allergy & Immunology; ATTEND Allergy & Immunology
PROC: HZ2ZZZZ Detoxification Services for Substance Abuse Treatment (ICD-10-PCS; principal; 2020-11-24)
DX: F11.23 Opioid dependence with withdrawal (principal); F10.20 Alcohol dependence, uncomplicated; F14.20 Cocaine dependence, uncomplicated; F17.210 Nicotine dependence, cigarettes, uncomplicated; F41.9 Anxiety disorder, unspecified; F32.9 Major depressive disorder, single episode, unspecified; I12.9 Hypertensive chronic kidney disease with stage 1 through stage 4 chronic kidney disease, or unspecified chronic kidney disease; N18.9 Chronic kidney disease, unspecified; I25.2 Old myocardial infarction; J44.9 Chronic obstructive pulmonary disease, unspecified; J45.20 Mild intermittent asthma, uncomplicated; R01.1 Cardiac murmur, unspecified
CPT/HCPCS: 36415; 80053; 85027; 86780; C9803; U0003

== ENCOUNTER 2021-03-23 15:05 | Emergency (ER) | payer OTHER ==
[2021-03-23 15:09] VITALS: TEMP 97; BMI 25.1
[2021-03-23 16:28] VITALS: BP 128/53; PULSE 60
[2021-03-23] MEDS ORDERED: ALBUTEROL SO4 2.5/IPRATROPIUM 0.5 INH SOL 3 ML VIAL.NEB. NEB ONE ×2 (16:28→16:34)
[2021-03-23 17:16] LABS: BASO % 1.5 % (0-2.0); HEMATOCRIT 36.8 % (35.4-49); LYMPH % 44.8 % (8-40); MCH 27.7 pg (25.7-33.7); MCHC 32.6 g/dl (32.0-35.9); MEAN CELL VOLUME 85.2 fl (80-96); MONO % 5.7 % (3.8-10.2); PLATELET COUNT 255 10^3/uL (134-434); RBC 4.32 M/mm3 (4.00-5.60); RDW 13.8 % (11.9-15.9); WHITE BLOOD COUNT 5.7 K/mm3 (4.0-10.0)
[2021-03-23 17:37] LABS: CALCIUM 8.5 mg/dL (8.5-10.1)
[2021-03-23 17:38] LABS: ALBUMIN 3.2 g/dl (3.4-5.0); BLOOD UREA NITROGEN 18.3 mg/dL (7-18)
[2021-03-23 17:41] LABS: CREATININE 1.2 mg/dL (0.55-1.3)
[2021-03-23 17:42] LABS: BILIRUBIN,TOTAL 0.4 mg/dL (0.2-1)
[2021-03-23 17:43] LABS: TOT PROT 6.5 g/dl (6.4-8.2)
== END 2021-03-23 18:23 | disposition home or self-care (01) ==
LOC: JER 15:05
PROC: 3E0F7GC Introduction of Other Therapeutic Substance into Respiratory Tract, Via Natural or Artificial Opening (ICD-10-PCS; principal; 2021-03-23)
DX: J20.9 Acute bronchitis, unspecified (principal)
CPT/HCPCS: 36415; 71046-TC-FY; 80053; 85025; 99284-25

== ENCOUNTER 2022-09-13 12:35 | Emergency (ER) | payer OTHER ==
[2022-09-13 12:42] VITALS: BP 170/100; PULSE 77; RESP 18; TEMP 98.5; BMI 26.9
[2022-09-13] MEDS ORDERED: KETOROLAC TROMETHAMINE 60 MG/2 ML VIAL IM ONE (13:51)
[2022-09-13] MEDS ORDERED: KETOROLAC TROMETHAMINE 30 MG/1 ML VIAL ONE (13:54)
== END 2022-09-13 14:27 | disposition home or self-care (01) ==
LOC: FER 12:35
PROC: 3E023GC Introduction of Other Therapeutic Substance into Muscle, Percutaneous Approach (ICD-10-PCS; principal; 2022-09-13)
DX: M19.011 Primary osteoarthritis, right shoulder (principal)
CPT/HCPCS: 73030-TC-RT-FY; 99284-25

== ENCOUNTER 2022-10-24 04:49 | Emergency (ER) | payer OTHER ==
[2022-10-24] MEDS ORDERED: ONDANSETRON 4 MG/2 ML VIAL IVPB ONE (04:56)
[2022-10-24] MEDS ORDERED: SODIUM CHLORIDE 1,000 ML IV ONE (04:56)
[2022-10-24] MEDS ORDERED: ONDANSETRON 4 MG/2 ML VIAL ONE (05:00)
[2022-10-24 05:11] VITALS: BP 153/97; RESP 16; TEMP 99.2; BMI 25.1
[2022-10-24 06:01] VITALS: PULSE 88
== END 2022-10-24 09:04 | disposition home or self-care (01) ==
LOC: FER 04:49
PROC: 3E033GC Introduction of Other Therapeutic Substance into Peripheral Vein, Percutaneous Approach (ICD-10-PCS; principal; 2022-10-24)
PROC: 3E0337Z Introduction of Electrolytic and Water Balance Substance into Peripheral Vein, Percutaneous Approach (ICD-10-PCS; 2022-10-24)
DX: F11.20 Opioid dependence, uncomplicated (principal); R11.2 Nausea with vomiting, unspecified
CPT/HCPCS: 99284-25

== ENCOUNTER 2023-01-19 21:54 | Emergency (ER) | payer OTHER ==
[2023-01-19] MEDS ORDERED: LIDOCAINE PATCH REMOVAL MC SCH (22:00)
[2023-01-19 22:03] VITALS: BP 163/91; PULSE 77; RESP 18; TEMP 98.6; BMI 26.7
[2023-01-19] MEDS ORDERED: METHOCARBAMOL 500 MG TABLET PO ONE (23:07)
[2023-01-19] MEDS ORDERED: ACETAMINOPHEN 500 MG TABLET (FP) PO ONE (23:07)
[2023-01-19] MEDS ORDERED: LIDOCAINE 5% TOPICAL PATCH TP ONE (23:08)
[2023-01-19] MEDS ORDERED: ACETAMINOPHEN 325 MG TABLET (FP) ONE (23:10)
[2023-01-19] MEDS ORDERED: METHOCARBAMOL 500 MG TABLET ONE (23:10)
[2023-01-19] MEDS ORDERED: LIDOCAINE 5% TOPICAL PATCH ONE (23:11)
== END 2023-01-20 02:19 | disposition home or self-care (01) ==
LOC: JER 21:54
DX: S13.9XXA Sprain of joints and ligaments of unspecified parts of neck, initial encounter (principal); M54.6 Pain in thoracic spine; V49.40XA Driver injured in collision with unspecified motor vehicles in traffic accident, initial encounter
CPT/HCPCS: 70450-TC; 71046-TC-FY; 72125-TC; 72128-TC; 72131-TC; 72170-TC-FY; 73030-TC-LT-FY; 99284-25

== ENCOUNTER 2023-08-23 16:55 | Observation (INO) | payer OTHER ==
[2023-08-23 17:20] VITALS: BMI 29.5
[2023-08-23 18:28] LABS: HEMATOCRIT 38.8 % (35.4-49); HEMOGLOBIN 12.8 G/dL (11.7-16.9); MCH 29.5 pg (25.7-33.7); MCHC 33.1 g/dl (32.0-35.9); MEAN CELL VOLUME 89.3 fl (80-96); MEAN PLT VOLUME 10.2 fl (7.5-11.1); PLATELET COUNT 189.3 10^3/uL (134-434); RBC 4.35 10^6/uL (4.00-5.60); RDW 14.8 % (11.9-15.9); WHITE BLOOD COUNT 5.3 10^3/uL (4.0-10.8)
[2023-08-23 18:31] LABS: INR 0.96 (0.83-1.09); PROTHROMBIN TIME (PATIENT) 11.1 SEC (9.7-13.0)
[2023-08-23 18:34] LABS: ACTIVATED PTT 33.4 SECONDS (25.2-36.5)
[2023-08-23 18:40] LABS: ALBUMIN 3.9 g/dl (3.4-5.0); ALK PHOS 103 U/L (45-117); ANION GAP 6 mmol/L (4-13); BILIRUBIN,TOTAL 0.3 mg/dl (0.2-1); CALCIUM 8.9 mg/dl (8.5-10.1); CHLORIDE 102 mmol/L (98-107); CO2 28 mmol/L (21-32); GLUCOSE,RANDOM 128 mg/dl (74-106); MAGNESIUM 1.9 mg/dL (1.8-2.4); SGOT/AST 19 U/L (15-37); SGPT/ALT 14 U/L (7-52); SODIUM 136 mmol/L (136-145); TOT PROT 5.9 g/dl (6.4-8.2)
[2023-08-23] MEDS ORDERED: SODIUM CHLORIDE 0.9% 1000 ML INFUS.BAG IV ONE (18:40)
[2023-08-23 19:03] LABS: PLATELET ESTIMATE ADEQUATE
[2023-08-23 21:35] LABS: URINE AMPHETAMINES NEGATIVE (NEGATIVE); URINE BARBITURATES NEGATIVE (NEGATIVE)
[2023-08-23 21:36] LABS: METHADONE, UR NEGATIVE (NEGATIVE); PHENCYCLIDINE,URINE NEGATIVE (NEGATIVE); URINE BENZODIAZEPINES NEGATIVE (NEGATIVE)
[2023-08-23 21:39] LABS: COCAINE, UR POSITIVE (NEGATIVE); OPIATES, URI POSITIVE (NEGATIVE)
[2023-08-23] MEDS ORDERED: DOCUSATE SODIUM 100 MG CAPSULE (FP) PO PRN (21:54)
[2023-08-23] MEDS ORDERED: ONDANSETRON 4 MG/2 ML VIAL IVPUSH PRN (21:54)
[2023-08-23] MEDS ORDERED: ACETAMINOPHEN 1000 MG/100 ML BAG IVPB PRN (21:58)
[2023-08-23] MEDS ORDERED: SODIUM CHLORIDE 1,000 ML IV SCH (22:00)
[2023-08-24 08:48] LABS: CALCIUM 8.8 mg/dl (8.5-10.1); CREATININE 1.1 mg/dl (0.6-1.3)
[2023-08-24 09:46] VITALS: BP 139/54; PULSE 59; RESP 19; TEMP 98.1
[2023-08-24] MEDS ORDERED: FOLIC ACID 1 MG TABLET (FP) PO SCH (10:00)
[2023-08-24] MEDS ORDERED: THIAMINE HCL 100 MG TABLET (FP) PO SCH (10:00)
[2023-08-24 10:28] LABS: BASO % 0.6 % (0-2.0); EOS % 11.6 % (0-4.5); HEMOGLOBIN 12.1 GM/dL (11.7-16.9); LYMPH % 38.8 % (8-40); MCH 28.7 pg (25.7-33.7); MCHC 32.6 g/dl (32.0-35.9); MEAN CELL VOLUME 88.1 fl (80-96); MEAN PLT VOLUME 9.4 fl (7.5-11.1); MONO % 9.3 % (3.8-10.2); NEUT % 39.7 % (42.8-82.8); PLATELET COUNT 167 10^3/uL (134-434); RDW 13.5 % (11.9-15.9); WHITE BLOOD COUNT 5.4 K/mm3 (4.0-10.0)
[2023-08-24] MEDS ORDERED: ACETAMINOPHEN 325 MG TABLET (FP) PO PRN (21:54)
== END 2023-08-24 10:58 | disposition home or self-care (01) ==
LOC: FER 16:55 → FM/S 22:55
PROVIDERS: ADMIT Internal Medicine; ATTEND Internal Medicine
PROC: 3E0337Z Introduction of Electrolytic and Water Balance Substance into Peripheral Vein, Percutaneous Approach (ICD-10-PCS; principal; 2023-08-23)
DX: F19.982 Other psychoactive substance use, unspecified with psychoactive substance-induced sleep disorder (principal); J45.909 Unspecified asthma, uncomplicated; I10 Essential (primary) hypertension; I21.4 Non-ST elevation (NSTEMI) myocardial infarction; J44.9 Chronic obstructive pulmonary disease, unspecified; R53.83 Other fatigue; M25.511 Pain in right shoulder; Z98.890 Other specified postprocedural states; R01.1 Cardiac murmur, unspecified
CPT/HCPCS: 0241U-QW; 36415; 70450-TC; 71045-TC-FY; 80048; 80053; 80307; 81003; 81015; 82607; 82746; 83735; 84439; 84443; 84484; 85025; 85027; 85610; 85730; 93005; 97116-GP; 97161-GP; 99285-25; G0378

== ENCOUNTER 2024-02-18 22:07 | Emergency (ER) | payer OTHER ==
[2024-02-18] MEDS ORDERED: AMOX TR/POT CLAV 875MG/125MG TABLETS (FP) ONE (22:15)
[2024-02-18 22:17] VITALS: BP 180/100; PULSE 78; RESP 16; TEMP 97.8; BMI 24.4
[2024-02-18] MEDS: AMOX TR/POT CLAV 875MG/125MG TABLETS (FP) PO ONE (22:31)
== END 2024-02-18 22:30 | disposition home or self-care (01) ==
LOC: FER 22:07
DX: L03.116 Cellulitis of left lower limb (principal)
CPT/HCPCS: 99283-25

== ENCOUNTER 2024-03-31 16:28 | Inpatient (IN) | payer OTHER ==
[2024-03-31 17:38] VITALS: BMI 25.1
[2024-03-31] MEDS ORDERED: DICYCLOMINE HCL 10 MG CAPSULE PO PRN (19:28)
[2024-03-31] MEDS ORDERED: MAG HYDROX/AL HYDROX/SIMETH 30 ML UNIT-DOSE CUP PO PRN (19:28)
[2024-03-31] MEDS ORDERED: BENZONATATE 200 MG CAPSULE PO PRN (19:28)
[2024-03-31] MEDS ORDERED: NALOXONE HCL 0.4 MG/ML VIAL IM PRN (19:28)
[2024-03-31] MEDS ORDERED: NALOXONE (NARCAN) HCL 4 MG/0.1 ML SPRAY NS PRN (19:28)
[2024-03-31] MEDS ORDERED: guaiFENesin 600 MG TABLET.ER (FP) PO PRN (19:28)
[2024-03-31] MEDS ORDERED: NICOTINE POLACRILEX 4 MG GUM BUC PRN (19:28)
[2024-03-31] MEDS ORDERED: BENZOCAINE/MENTHOL (CHLORASEPTIC ) LOZENGE MM PRN (19:28)
[2024-03-31] MEDS ORDERED: hydrOXYzine PAMOATE 25 MG CAPSULE (FP) PO PRN (19:28)
[2024-03-31] MEDS ORDERED: MAGNESIUM HYDROX 2400MG/30ML ORAL SUSPENSION 30 ML CUP PO PRN (19:28)
[2024-03-31] MEDS ORDERED: methaDONE HCL 10 MG TABLET (FOR DETOX USE ONLY) ONE (19:54)
[2024-03-31] MEDS ORDERED: LISINOPRIL 10 MG TABLET ONE (19:55)
[2024-03-31] MEDS: methaDONE HCL 10 MG TABLET (FOR DETOX USE ONLY) PO ONE (19:59)
[2024-03-31] MEDS: LISINOPRIL 10 MG TABLET PO ONE (19:59)
[2024-03-31] MEDS: THIAMINE 100 MG TABLET PO SCH (22:32)
[2024-04-01] MEDS: PRENATAL VITAMINS W/ FOLIC ACID TABLET (FP) PO SCH (10:16)
[2024-04-01] MEDS: LISINOPRIL 10 MG TABLET PO SCH (10:16)
[2024-04-01 11:19] LABS: CHLORIDE 109 mmol/L (98-107); POTASSIUM 4.2 mmol/L (3.5-5.1); SODIUM 142 mmol/L (136-145)
[2024-04-01 11:23] LABS: HEMATOCRIT 38.1 % (35.4-49); HEMOGLOBIN 12.3 GM/dL (11.7-16.9); MCH 28.4 pg (25.7-33.7); MCHC 32.2 g/dl (32.0-35.9); MEAN CELL VOLUME 88.2 fl (80-96); MEAN PLT VOLUME 9.4 fl (7.5-11.1); PLATELET COUNT 186 10^3/uL (134-434); RBC 4.32 M/mm3 (4.00-5.60); RDW 13.8 % (11.9-15.9); WHITE BLOOD COUNT 5.4 K/mm3 (4.0-10.0)
[2024-04-01 11:35] LABS: CALCIUM 8.8 mg/dL (8.5-10.1)
[2024-04-01 11:37] LABS: ALBUMIN 3.2 g/dl (3.4-5.0); ANION GAP 6 mmol/L (4-13); CO2 28 mmol/L (21-32); GLUCOSE,RANDOM 95 mg/dL (74-106)
[2024-04-01 11:39] LABS: CREATININE 0.8 mg/dL (0.55-1.3); SGOT/AST 21 U/L (15-37); SGPT/ALT 19 U/L (13-61)
[2024-04-01 11:40] LABS: BILIRUBIN,TOTAL 0.5 mg/dL (0.2-1)
[2024-04-01 11:41] LABS: ALK PHOS 89 U/L (45-117)
[2024-04-01] MEDS: ASPIRIN 81 MG CHEWABLE TABLETS PO ONE ×2 (16:44→16:45)
[2024-04-01] MEDS: METHOCARBAMOL 500 MG TABLET PO PRN (22:34)
[2024-04-01] MEDS: cloNIDine HCL 0.1 MG TABLET PO PRN (22:34)
[2024-04-02 09:10] VITALS: RESP 18
[2024-04-02] MEDS: methaDONE HCL 10 MG TABLET (FOR DETOX USE ONLY) PO ONE (10:12)
[2024-04-02 18:26] VITALS: BP 164/78; PULSE 53; TEMP 98.7
[2024-04-02] MEDS: ASPIRIN 81 MG CHEWABLE TABLETS PO ONE (18:28)
[2024-04-04] MEDS ORDERED: methaDONE HCL 10 MG TABLET (FOR DETOX USE ONLY) PO ONE (10:00)
== END 2024-04-03 01:30 | disposition short-term general hospital (02) | DRG 897 ==
LOC: SUATTDRO 16:28 → YASAS 16:28 → Y3N 19:50
PROVIDERS: ADMIT Allergy & Immunology; ATTEND Surgery
PROC: HZ2ZZZZ Detoxification Services for Substance Abuse Treatment (ICD-10-PCS; principal; 2024-03-31)
DX: F11.23 Opioid dependence with withdrawal (principal); F14.20 Cocaine dependence, uncomplicated; F10.10 Alcohol abuse, uncomplicated; F17.213 Nicotine dependence, cigarettes, with withdrawal; I10 Essential (primary) hypertension; I25.2 Old myocardial infarction; J44.9 Chronic obstructive pulmonary disease, unspecified; R07.9 Chest pain, unspecified; R00.1 Bradycardia, unspecified
CPT/HCPCS: 36415; 80053; 80305; 80307; 85027; 86780; 93005; 93010

== ENCOUNTER 2024-04-02 19:55 | Observation (INO) | payer OTHER ==
[2024-04-02 20:17] VITALS: BMI 25.1
[2024-04-02] MEDS ORDERED: ACETAMINOPHEN INJECTION 100 ML IVPB ONE (21:02)
[2024-04-02] MEDS: ACETAMINOPHEN 1000 MG/100 ML BAG IVPB ONE (21:10)
[2024-04-02 21:16] LABS: BASO % 0.7 % (0-2.0); EOS % 1.1 % (0-4.5); HEMATOCRIT 41.5 % (35.4-49); HEMOGLOBIN 13.6 GM/dL (11.7-16.9); LYMPH % 40.8 % (8-40); MCH 28.4 pg (25.7-33.7); MCHC 32.7 g/dl (32.0-35.9); MEAN CELL VOLUME 86.9 fl (80-96); MEAN PLT VOLUME 8.6 fl (7.5-11.1); NEUT % 50.4 % (42.8-82.8); PLATELET COUNT 194 10^3/uL (134-434); RBC 4.78 M/mm3 (4.00-5.60); RDW 14.2 % (11.9-15.9); WHITE BLOOD COUNT 5.7 K/mm3 (4.0-10.0)
[2024-04-02 21:25] LABS: INR 1.05 (0.83-1.09); PROTHROMBIN TIME (PATIENT) 11.8 SEC (9.7-13.0)
[2024-04-02 21:27] LABS: ACTIVATED PTT 31.2 SECONDS (25.2-36.5)
[2024-04-02 21:41] LABS: CHLORIDE 106 mmol/L (98-107); SODIUM 139 mmol/L (136-145)
[2024-04-02 21:43] LABS: CALCIUM 9.3 mg/dL (8.5-10.1)
[2024-04-02 21:44] LABS: ALBUMIN 3.4 g/dl (3.4-5.0); BLOOD UREA NITROGEN 11.3 mg/dL (7-18); CO2 27 mmol/L (21-32); GLUCOSE,RANDOM 100 mg/dL (74-106)
[2024-04-02 21:47] LABS: CREATININE 0.9 mg/dL (0.55-1.3); SGOT/AST 46 U/L (15-37); SGPT/ALT 22 U/L (13-61)
[2024-04-02 21:48] LABS: TOT PROT 6.6 g/dl (6.4-8.2)
[2024-04-02 21:49] LABS: BILIRUBIN,TOTAL 0.4 mg/dL (0.2-1)
[2024-04-02 21:50] LABS: ALK PHOS 94 U/L (45-117)
[2024-04-02 23:01] LABS: ANION GAP 6 mmol/L (4-13); POTASSIUM 6.1 mmol/L (3.5-5.1)
[2024-04-03 02:53] LABS: POTASSIUM 3.9 mmol/L (3.5-5.1)
[2024-04-03 02:55] LABS: BLOOD UREA NITROGEN 11.2 mg/dL (7-18); CALCIUM 9.2 mg/dL (8.5-10.1)
[2024-04-03 02:59] LABS: CREATININE 0.9 mg/dL (0.55-1.3)
[2024-04-03] MEDS ORDERED: cloNIDine HCL 0.1 MG TABLET PO PRN (03:29)
[2024-04-03] MEDS ORDERED: ACETAMINOPHEN 325 MG TABLET (FP) PO PRN (05:40)
[2024-04-03 06:36] LABS: BASO % 0.7 % (0-2.0); EOS % 1.6 % (0-4.5); HEMATOCRIT 42.1 % (35.4-49); HEMOGLOBIN 13.8 GM/dL (11.7-16.9); LYMPH % 40.2 % (8-40); MCH 28.7 pg (25.7-33.7); MCHC 32.8 g/dl (32.0-35.9); MEAN CELL VOLUME 87.6 fl (80-96); MEAN PLT VOLUME 8.7 fl (7.5-11.1); MONO % 7.8 % (3.8-10.2); NEUT % 49.7 % (42.8-82.8); PLATELET COUNT 198 10^3/uL (134-434); RBC 4.81 M/mm3 (4.00-5.60); RDW 13.8 % (11.9-15.9); WHITE BLOOD COUNT 4.9 K/mm3 (4.0-10.0)
[2024-04-03 06:53] LABS: POTASSIUM 3.8 mmol/L (3.5-5.1)
[2024-04-03 06:55] LABS: ALBUMIN 3.5 g/dl (3.4-5.0); CALCIUM 9.7 mg/dL (8.5-10.1); MAGNESIUM 1.7 mg/dL (1.8-2.4)
[2024-04-03 06:56] LABS: BLOOD UREA NITROGEN 10.7 mg/dL (7-18)
[2024-04-03 06:59] LABS: PHOSPHOROUS 2.9 mg/dL (2.5-4.9)
[2024-04-03 07:00] LABS: BILIRUBIN,TOTAL 0.7 mg/dL (0.2-1); TOT PROT 6.4 g/dl (6.4-8.2)
[2024-04-03 07:43] VITALS: BP 146/65; PULSE 51; RESP 16; TEMP 98.6
[2024-04-03] MEDS ORDERED: methaDONE HCL 10 MG TABLET ONE (10:23)
[2024-04-03] MEDS ORDERED: LISINOPRIL 10 MG TABLET ONE (10:24)
[2024-04-03] MEDS ORDERED: ENOXAPARIN NA (PORCINE) 40 MG/0.4 ML DISP.SYRIN SQ ONE (10:24)
[2024-04-03] MEDS ORDERED: NICOTINE 14 MG/24 HOURS TOPICAL PATCH TD ONE (10:24)
[2024-04-03] MEDS ORDERED: LIDOCAINE 5% TOPICAL PATCH ONE (10:24)
[2024-04-03] MEDS: ENOXAPARIN NA (PORCINE) 40 MG/0.4 ML DISP.SYRIN SQ SCH (10:41)
[2024-04-03] MEDS: LIDOCAINE 5% TOPICAL PATCH TP SCH (10:41)
[2024-04-03] MEDS: NICOTINE 14 MG/24 HOURS TOPICAL PATCH TD SCH (10:41)
[2024-04-03] MEDS: LISINOPRIL 10 MG TABLET PO SCH (10:42)
[2024-04-03] MEDS ORDERED: LIDOCAINE PATCH REMOVAL MC SCH (22:00)
[2024-04-04] MEDS ORDERED: methaDONE HCL 10 MG TABLET (FOR DETOX USE ONLY) PO ONE (10:00)
[2024-04-04] MEDS ORDERED: methaDONE HCL 10 MG TABLET PO ONE (10:00)
== END 2024-04-03 15:40 | disposition left against medical advice (07) ==
LOC: JER 19:55 → JERBED 04-03 00:20
PROVIDERS: ADMIT Internal Medicine; ATTEND Nurse Practitioner
PROC: 3E033NZ Introduction of Analgesics, Hypnotics, Sedatives into Peripheral Vein, Percutaneous Approach (ICD-10-PCS; principal; 2024-04-03)
PROC: 3E023GC Introduction of Other Therapeutic Substance into Muscle, Percutaneous Approach (ICD-10-PCS; 2024-04-03)
DX: J44.9 Chronic obstructive pulmonary disease, unspecified (principal); I25.10 Atherosclerotic heart disease of native coronary artery without angina pectoris; I11.9 Hypertensive heart disease without heart failure; K76.0 Fatty (change of) liver, not elsewhere classified; I25.2 Old myocardial infarction; F19.90 Other psychoactive substance use, unspecified, uncomplicated; F17.210 Nicotine dependence, cigarettes, uncomplicated
CPT/HCPCS: 36415; 71045-TC-FY; 71101-TC-LT-FY; 80048; 80053; 83735; 84100; 84439; 84443; 84484; 85025; 85610; 85730; 93005; 93010; 93306-TC; 96372; 96374; 99285-25; G0378; J0131